=== PATIENT | male | born 1940 | race Caucasian/White ===

== ENCOUNTER → 2016-11-11 | Outpatient (CLI) | payer OTHER ==
[~2016-11-11] MED LIST: ASPI81TA28 PO; B-CO1CAP5 PO; CLOP1TAB5 PO; COEN150C PO; FINA5TAB PO; LISI-461 PO; MULTTAB58 PO; NTRGSL/4 UT; PITAVASTATIN CALCIUM PO; PRAV20TA PO
[2016-11-11 18:12] LABS: URINE APPEARANCE CLEAR (CLEAR); URINE BILIRUBIN NEG (NEG); URINE COLOR YELLOW; URINE NITRITE NEG (NEG); URINE PH 5.5 (4.5-7.5); UROBILINOGEN NEG (NEG)
[2016-11-11 18:13] LABS: MANUAL MICROSCOPIC REQUIRED? NO; REVIEW REQ? NO
[2016-11-11 18:15] LABS: HEMATOCRIT 39.2 % (42-52); MEAN CORPUSCULAR HEMOGLOBIN 33.8 pg (25-34); MEAN CORPUSCULAR HGB CONC 34.2 g/dl (32-36); MEAN PLATELET VOLUME 9.5 fL (7.4-10.4); PLATELET COUNT 220 K/uL (130-400); RED BLOOD COUNT 3.96 M/uL (4.7-6.1)
[2016-11-11 19:30] LABS: FERRITIN 45.2 ng/ml (8.0-388.0)
[2016-11-11 19:33] LABS: BLOOD UREA NITROGEN 20 mg/dl (7-18); BUN/CREATININE RATIO 15.5 (10-20); CARBON DIOXIDE 27 mmol/L (21-32); CHLORIDE 106 mmol/L (98-107); GLUCOSE 98 mg/dl (70-99); PHOSPHORUS 2.7 mg/dl (2.5-4.9); POTASSIUM 4.6 mmol/L (3.5-5.1); SODIUM 141 mmol/L (136-145)
== END | disposition home or self-care (01) ==
LOC: C.LABMFLN 14:12
PROVIDERS: ATTEND Internal Medicine Nephrology
DX: R33.9 Retention of urine, unspecified (principal); N20.0 Calculus of kidney; R31.0 Gross hematuria; E55.9 Vitamin D deficiency, unspecified

== ENCOUNTER → 2017-01-06 | Outpatient (CLI) | payer OTHER ==
[2017-01-06 13:16] LABS: URINE APPEARANCE CLEAR (CLEAR); URINE BILIRUBIN NEG (NEG); URINE COLOR DK YELLOW; URINE NITRITE NEG (NEG); URINE SPECIFIC GRAVITY 1.016 (1.000-1.030); UROBILINOGEN NEG (NEG)
[2017-01-06 13:19] LABS: MANUAL MICROSCOPIC REQUIRED? NO; REVIEW REQ? NO
[2017-01-06 13:58] LABS: BLOOD UREA NITROGEN 19 mg/dl (7-18); BUN/CREATININE RATIO 14.9 (10-20); CALCIUM 9.6 mg/dl (8.5-10.1); CARBON DIOXIDE 24 mmol/L (21-32); CHLORIDE 105 mmol/L (98-107); GLUCOSE 89 mg/dl (70-99); POTASSIUM 4.5 mmol/L (3.5-5.1); SODIUM 138 mmol/L (136-145)
== END | disposition home or self-care (01) ==
LOC: C.LABMFLN 12:03
PROVIDERS: ATTEND Internal Medicine Nephrology
DX: N20.0 Calculus of kidney (principal)

== ENCOUNTER → 2017-01-20 | Outpatient (CLI) | payer OTHER ==
[2017-01-20 13:33] LABS: URINE APPEARANCE CLEAR (CLEAR); URINE BILIRUBIN NEG (NEG); URINE COLOR DK YELLOW; URINE NITRITE NEG (NEG); URINE PH 6.5 (4.5-7.5); URINE SPECIFIC GRAVITY 1.019 (1.000-1.030); UROBILINOGEN NEG (NEG)
[2017-01-20 13:44] LABS: POTASSIUM 4.2 mmol/L (3.5-5.1)
[2017-01-20 13:58] LABS: MANUAL MICROSCOPIC REQUIRED? NO; REVIEW REQ? YES
--- NOTE | 2017-02-04 11:49 | CODING QUERY MEDICAL NECESSITY ---
CQSUPPORTING DIAGNOSIS NEEDED A supporting diagnosis is required for the test/procedure performed on this patient in order for us to be reimbursed by the patient's insurance. Please provide a supporting diagnosis for the following test/procedure listed below next to the test name along with your signature. *If there is no additional diagnosis for this patient that would support the following test/procedure please document that below next to the test/procedure. Test(s)/Procedure(s) that require a supporting diagnosis: DOS 01/20/17 VITAMIN D TEST Provider Signature: Date: Thank you Sweetie Ramires Health Information Management Once completed, please kindly fax back to [phone] For questions please call [phone]
== END | disposition home or self-care (01) ==
LOC: C.LABMFLN 12:21
PROVIDERS: ATTEND Internal Medicine Nephrology
DX: R31.0 Gross hematuria (principal); E55.9 Vitamin D deficiency, unspecified

== ENCOUNTER 2019-01-18 05:32 | Inpatient (IN) ==
--- NOTE | 2019-01-04 17:05 | PAT Medication Instructions ---
Medication Instructions Date of Service January 05, 2019 Home Medications Prevagen 1 tab PO QAM aspirin [Aspirin Low Dose] 81 mg PO BID calcium carbonate-vitamin D3 1 tab PO BID clopidogrel 75 mg PO QPM coenzyme Q10 [CoQ-10] 200 mg PO QPM famotidine 20 mg PO BID lisinopril 10 mg PO QAM multivitamin 1 tab PO QAM nitroglycerin [Nitrostat] 1 tab SUBLINGUAL DIRECTED peg 400-propylene glycol (PF) [Systane (PF)] 1 drp OPHTHALMIC (EYE) BID NEEDED pitavastatin calcium [Livalo] 2 mg PO QPM potassium citrate 10 meq PO BID pravastatin 20 mg PO QPM vitamin B complex 2 tab PO QAM Continue as directed nitroglycerin [Nitrostat] 1 tab SUBLINGUAL DIRECTED ASK your prescriber and surgeon aspirin [Aspirin Low Dose] 81 mg PO BID clopidogrel 75 mg PO QPM STOP taking 2 weeks before surgery Prevagen 1 tab PO QAM coenzyme Q10 [CoQ-10] 200 mg PO QPM DO NOT take the morning of surgery calcium carbonate-vitamin D3 1 tab PO BID multivitamin 1 tab PO QAM lisinopril 10 mg PO QAM potassium citrate 10 meq PO BID vitamin B complex 2 tab PO QAM Take morning of surgery With a small sip of water, OTHERWISE NOTHING TO EAT OR DRINK AFTER MIDNIGHT: famotidine 20 mg PO BID peg 400-propylene glycol (PF) [Systane (PF)] 1 drp OPHTHALMIC (EYE) BID NEEDED Take evening before surgery calcium carbonate-vitamin D3 1 tab PO BID famotidine 20 mg PO BID peg 400-propylene glycol (PF) [Systane (PF)] 1 drp OPHTHALMIC (EYE) BID NEEDED pitavastatin calcium [Livalo] 2 mg PO QPM potassium citrate 10 meq PO BID pravastatin 20 mg PO QPM Other Notes If you have any questions please call us at [phone] or [phone] or [phone] or [phone]
--- NOTE | 2019-01-05 10:02 | Anesthesiology Consultation ---
Date of Service January 05, 2019 Assessment & Plan (1) Encounter for pre-operative examination: Chart Review Chart Review: Acceptable Risk for Surgery and Patient seen in Pre Admission Testing Consults Requested none History Surgery Operation Date: 01/19/19 07:45 Proposed Procedures p C3-C5 Anterior Cervical Discectomy and Fusion, C4 Corpectomy - Tarik Biggs DO Height/Weight Height: 5 ft 5 in Weight: 84.5 kg Allergies Allergy/AdvReac Type Severity Reaction Status Date / Time propoxyphene Allergy Severe POSS. Verified 12/31/18 13:07 CARDIAC ARREST morphine Allergy Unknown "NEAR Verified 12/31/18 13:07 " - TOLERATES FENTANYL Medications Home Medications Medication Instructions Recorded Confirmed Last Taken Prevagen 1 tab PO QAM 12/31/18 Unknown aspirin [Aspirin Low Dose] 81 mg PO BID 12/31/18 12/31/18 Unknown calcium carbonate-vitamin D3 1 tab PO BID 12/31/18 12/31/18 Unknown [Calcium 500 With D] clopidogrel 75 mg PO QPM 12/31/18 12/31/18 Unknown coenzyme Q10 [CoQ-10] 200 mg PO QPM 12/31/18 12/31/18 Unknown famotidine 20 mg PO BID 12/31/18 12/31/18 Unknown lisinopril 10 mg PO QAM 12/31/18 12/31/18 Unknown multivitamin 1 tab PO QAM 12/31/18 12/31/18 Unknown nitroglycerin [Nitrostat] 1 tab SUBLINGUAL DIRECTED 12/31/18 12/31/18 Unknown peg 400-propylene glycol (PF) 1 drp OPHTHALMIC (EYE) BID PRN 12/31/18 12/31/18 Unknown [Systane (PF)] pitavastatin calcium [Livalo] 2 mg PO QPM 12/31/18 12/31/18 Unknown potassium citrate 10 meq PO BID 12/31/18 12/31/18 Unknown pravastatin 20 mg PO QPM 12/31/18 12/31/18 Unknown vitamin B complex 2 tab PO QAM 12/31/18 12/31/18 Unknown Past Medical History Medical History BPH (benign prostatic hyperplasia) GERD (gastroesophageal reflux disease) History of renal stone Hx 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 - Found on MRI Hx of myocardial infarction 2009 - seen at [place] - stress test/cardiac cath Hyperlipidemia Hypertension Hypothyroidism Late onset Alzheimer's disease without behavioral disturbance Obstructive sleep apnea on CPAP Pituitary tumor Monitored by PCP @ [facility] Past Family History Family History Grandmother (Paternal) Family history of diabetes mellitus Past Surgical History Surgical History History of prostate surgery had laser surgery 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 Elected for glidescope based on pt airway assessment, ease, and use by resident. Hx of cardiac cath 2009 = done at [place] - Has stent in LAD Hx of colonoscopy Hx of hernia repair x3 Past Anesthesia History No Hx of Anesthesia Complications and No Family Hx of Anesthesia Complications History of PONV No Motion Sickness Screening History of Motion Sickness: No Social History Smoking Status: Never smoker Do You Dip or Chew Tobacco: No Hx Alcohol Use: No Hx Substance Use: No Exercise / Class Metabolic Activity II 4-5 Yardwork/Stairs/Walk up hill (Able to climb FOS. Denies CP or SOB. Does get hip/back pain with stairs.) Review of Systems Patient denies chest pain, shortness of breath, dyspnea on exertion, cough, wheezing, palpitations. +Joint pain (back/neck) +acid reflux (controlled with medication) Physical Exam Vital Signs BP: 130/80 P: 59 R: 14 T: 97.8 SPO2: 98% on RA ENMT Thyromental Distance: < 3.5 Finger Breadths (3) Mallampati Class: III Neck normal visual inspection and trachea midline Respiratory normal respiratory effort Auscultation: lungs clear to auscultation bilaterally Cardiovascular Rate/Rhythm: regular rate and regular rhythm Heart Sounds: no murmur Vessels: no carotid bruit Neurologic moves all extremities Psychiatric Orientation: oriented to person Testing Electrocardiogram Date: 01/05/19 Findings: + NSR @ (61) and + no change from (01/09/16) Chest X-Ray Date: 01/05/19 Findings: + NAD FINDINGS: There is no pneumothorax or pleural effusion. Lung volumes are mildly diminished. Linear bibasilar opacities favor atelectasis. There is no consolidation or evidence for pulmonary edema. A moderate sized hiatal hernia is noted. Cardiomediastinal silhouette is otherwise unremarkable. IMPRESSION: 1. No acute cardiopulmonary findings. 2. Moderate-sized hiatal hernia. Laboratory Results 01/05/19 11:08 01/05/19 11:08 Blood Type O Positive 01/05/19 11:08 Antibody Screen NEGATIVE 01/05/19 11:08 PT 10.2 Seconds (9.0-12.0) 01/05/19 11:08 INR 1.0 (0.9-1.1) 01/05/19 11:08 APTT 25.2 Seconds (21.0-31.0) 01/05/19 11:08 Urine Color Yellow 01/05/19 Unknown Urine Appearance Clear (Clear) 01/05/19 Unknown Urine pH 6.5 (4.5-7.5) 01/05/19 Unknown Ur Specific [place] 1.014 (1.000-1.030) 01/05/19 Unknown Urine Protein Negative (Negative) 01/05/19 Unknown Urine Glucose (UA) Negative (Negative) 01/05/19 Unknown Urine Ketones Negative (Negative) 01/05/19 Unknown Urine Nitrite Negative (Negative) 01/05/19 Unknown Ur Leukocyte Esterase Negative (Negative) 01/05/19 Unknown
--- NOTE | 2019-01-05 11:51 | XRay Report ---
XR chest Pre-admission PA/Lat CLINICAL HISTORY: Preoperative evaluation. COMPARISON STUDY: Chest radiograph December 19, 2015. FINDINGS: There is no pneumothorax or pleural effusion. Lung volumes are mildly diminished. Linear bi basilar opacities favor atelectasis. There is no consolidation or evidence for pulmonary edema. A mod erate sized hiatal hernia is noted. Cardiomediastinal silhouette is otherwise unremarkable. IMPRESSION: 1. No acute cardiopulmonary findings. 2. Moderate-sized hiatal hernia. Electronically signed by: Moose Zapien M.D. 01/05/2019 11:50 AM
[2019-01-05 12:17] LABS: Basophils # (auto) 0.01 K/uL (0-0.2); Basophils % (auto) 0.2 %; Eosinophils # (auto) 0.15 K/uL (0-0.5); Eosinophils % (auto) 2.4 %; Hematocrit (blood only) 41.1 % (42-52); Hemoglobin 13.9 g/dL (14.0-18.0); Lymphocytes # (auto) 1.33 K/uL (1.2-3.4); Lymphocytes % (auto) 21.3 %; Mean Corpuscular Hgb Conc 33.8 g/dL (32-36); Mean Corpuscular Volume 98.6 fL (80-100); Mean Platelet Volume 9.7 fL (7.4-10.4); Monocytes # (auto) 0.61 K/uL (0.11-0.59); Monocytes % (auto) 9.8 %; Neutrophils # (auto) 4.15 K/uL (1.4-6.5); Neutrophils % (auto) 66.3 %; Platelet Count 202 K/uL (130-400); RDW Coefficient of Variation 12.5 % (11.5-14.5); RDW Standard Deviation 45.2 fL (36.4-46.3); Red Blood Count 4.17 M/uL (4.7-6.1); White Blood Count 6.25 K/uL (4.8-10.8)
[2019-01-05 12:18] LABS: Appearance Urine Clear (Clear); Bilirubin Urine Negative (Negative); Blood Urine Negative (Negative); Color Urine Yellow; Glucose Urine UA Negative (Negative); Ketones Urine Negative (Negative); Leukocyte Esterase Urine Negative (Negative); Nitrite Urine Negative (Negative); Protein Urine Negative (Negative); Specific Gravity Urine 1.014 (1.000-1.030); Urobilinogen Urine Negative (Negative); pH Urine 6.5 (4.5-7.5)
[2019-01-05 12:30] LABS: Partial Thromboplastin Ratio 0.9; Partial Thromboplastin Time 25.2 Seconds (21.0-31.0); Prothrombin Time 10.2 Seconds (9.0-12.0)
[2019-01-05 12:32] LABS: BUN Creatinine Ratio 14.1 (10-20); Calcium 10.1 mg/dl (8.5-10.1); Creatinine Clr Calc Pharmacy 43.3 ml/min; Est GFR (African American) 56.6; Est GFR (Non-African American) 48.8
[2019-01-18] MEDS ORDERED: CLINDAMYCIN 600 MG/54 ML BAG IV SCH (06:00)
[2019-01-18] MEDS ORDERED: LR 15ML/HR IV SCH (06:00)
[2019-01-18] MEDS ORDERED: CeleBREX 200 MG CAP PO SCH (06:00)
[2019-01-18] MEDS ORDERED: GABAPENTIN 300 MG PO SCH (06:00)
[2019-01-18] MEDS ORDERED: ACETAMINOPHEN 500 MG TAB PO SCH (06:00)
[2019-01-18] MEDS ORDERED: fentaNYL citrate 100 MCG/2 ML VIAL ONE ×3 (06:43→09:23)
[2019-01-18] MEDS ORDERED: BACITRACIN INJ 50,000 UNIT VIAL ONE (06:52)
--- NOTE | 2019-01-18 07:27 | History & Physical Bridge Note ---
Date of Service January 18, 2019 History & Physical Bridge Note I have examined the patient, reviewed the History & Physical and in the interval since the performance of the History & Physical I have noted the following changes of clinical significance: no changes noted
--- NOTE | 2019-01-18 07:28 | History & Physical Report ---
Date of Service January 18, 2019 Assessment & Plan (1) Cervical stenosis of spinal canal: Anterior cervical discectomy and fusion C3-C5 corpectomy C4 Present on Admission?: Yes History of Present Illness Chief Complaint: Neck and arm pain Primary Care Provider: Calos Radford MD This is an 78-year-old male that presents with chronic persistent neck and arm pain. After failing extensive course of nonoperative care he is here for surgical intervention. Allergies Allergy/AdvReac Type Severity Reaction Status Date / Time propoxyphene Allergy Severe POSS. Verified 01/18/19 05:58 CARDIAC ARREST doxycycline Allergy Unknown Unknown Verified 01/18/19 06:10 morphine Allergy Unknown "NEAR Verified 01/18/19 05:58 " - TOLERATES FENTANYL Penicillins Allergy Unknown Unknown Verified 01/18/19 06:10 Home Medications Home Medications Medication Instructions Recorded Confirmed Type Prevagen 1 tab PO QAM 12/31/18 01/18/19 History aspirin [Aspirin Low Dose] 81 mg PO BID 12/31/18 01/18/19 History calcium carbonate-vitamin D3 1 tab PO BID 12/31/18 01/18/19 History [Calcium 500 With D] clopidogrel 75 mg PO QPM 12/31/18 01/18/19 History coenzyme Q10 [CoQ-10] 200 mg PO QPM 12/31/18 12/31/18 History famotidine 20 mg PO BID 12/31/18 01/18/19 History lisinopril 10 mg PO QAM 12/31/18 01/18/19 History multivitamin 1 tab PO QAM 12/31/18 01/18/19 History nitroglycerin [Nitrostat] 1 tab SUBLINGUAL DIRECTED 12/31/18 01/18/19 History peg 400-propylene glycol (PF) 1 drp OPHTHALMIC (EYE) BID PRN 12/31/18 History [Systane (PF)] pitavastatin calcium [Livalo] 2 mg PO QPM 12/31/18 01/18/19 History potassium citrate 10 meq PO BID 12/31/18 01/18/19 History pravastatin 20 mg PO QPM 12/31/18 01/18/19 History vitamin B complex 2 tab PO QAM 12/31/18 01/18/19 History acetaminophen [Acetaminophen Extra 1,000 mg PO Q6H PRN 01/18/19 01/18/19 History Strength] Past Med/Surg History Family History Grandmother (Paternal) Family history of diabetes mellitus Social History Preferred Language: Chadian Communication Ability: Effective Beliefs That Will Affect Care: None Current Living Situation: Spouse Other Information That Helps Us Care for You: No Feels Safe at Home: Yes Safety Concerns: Feels Safe At This Time Smoking Status: Never smoker Hx Alcohol Use: No Hx Substance Use: No Physical Exam Vital Signs (Past 24 Hours): Last Vital Signs Temp 36.6 C 01/18/19 06:21 Pulse 68 01/18/19 06:21 Resp 20 01/18/19 06:21 BP 123/81 01/18/19 06:21 Pulse Ox 94 01/18/19 06:21
[2019-01-18] MEDS ORDERED: HYDROmorphone INJ 2 MG/ML SYR/VIAL ONE (08:01)
[2019-01-18] MEDS ORDERED: ONDANSETRON INJ 2 MG/ML 2 ML VIAL ONE (08:02)
[2019-01-18] MEDS ORDERED: ROCURONIUM BROMIDE 10 MG/ML 5 ML VIAL ONE (08:02)
[2019-01-18] MEDS ORDERED: ePHEDrine sulfate 50 MG/ML SYR ONE ×2 (08:02→08:59)
[2019-01-18] MEDS ORDERED: NEOSTIGMINE METHYLSULFATE 1 MG/ML 10ML VIAL ONE (08:02)
[2019-01-18] MEDS ORDERED: GLYCOPYRROLATE 0.2 MG/ML VIAL ONE (08:02)
[2019-01-18] MEDS ORDERED: DEXAMETHASONE SOD INJ 4 MG/ML VIAL ONE (08:02)
[2019-01-18] MEDS ORDERED: LIDOCAINE HCL 2% 2 ML VIAL/AMP(20MG/ML) INFIL ONE (08:02)
[2019-01-18] MEDS ORDERED: PROPOFOL IV EMULSION 10 MG/ML 20 ML VIAL IV ONE (08:02)
[2019-01-18] MEDS ORDERED: FLOSEAL HEMOSTATIC MATRIX 10ML TOP ONE (08:21)
[2019-01-18] MEDS ORDERED: THROMBIN FOR SOLN 20000 UNIT KIT ONE (08:28)
[2019-01-18] MEDS ORDERED: ePHEDrine sulfate 50 MG/ML AMP ONE (08:59)
--- NOTE | 2019-01-18 09:35 | Operative Report ---
Post Operative Report Pre & Post Diagnosis Operation Date: 01/18/19 07:45 Pre-Op Diagnosis: Cervical spinal stenosis with myeloradiculopathy Post-Op Diagnosis: Same Procedure Operation Date: 01/18/19 07:45 Actual Procedures #1 anterior cervical discectomy C3-4 and C4-5. #2 anterior cervical arthrodesis C3-4 C4-5. #3 placement of cortical allograft filled with DBM 6 mm in height at C3-4 C4-5. #4 application ibanez plate and screws across C3-4 C4-5. Surgeon Tarik Biggs, Business Development Director Velma Carvalho Estimated Blood Loss 200 Findings Consistent with Post-Op Diagnosis Specimens None Description of Procedure Patient was met with preoperatively case discussed all questions addressed. After informed consent obtained patient was taken to the operative suite underwent intubation and placed in supine position Marco table and Jenner headholder. All bony prominences well-padded eyes inspected to ensure no external pressure placed upon but this point the anterior cervical spine was prepped and draped in normal sterile fashion. The assistance of fluoroscopy identified the C4 vertebral body and a transverse incision was placed along the right anterior aspect of the cervical spine aligns region. Sharp dissection with the assistance of bipolar cautery was performed down to and exposing the anterior cervical spine from C3-C5. Self-retaining retractors placed. Then performed a complete discectomy of C3-4 out to the uncovertebral joints bilaterally removing all posterior annular fibers and longitudinal ligament for 3 decompression. A 6 mm cortical allograft filled with DBM was then tapped in position. And then approached C4-5. Upon my elevation of the longus coli I experienced significant arterial bleeding on the right side. I will was as unable to identify a precise vessel. Packed the area off with Surgicel. Bleeding seemed to be controlled at this time. I did request i an intraoperative consult with Dr. Banda her vascular surgeon regarding his thoughts. It is recommended we perform a CTA immediately postoperatively. I did proceed to stabilize the C4-5 level so as not to disrupt the clot. I did perform a complete discectomy 4 5 and placed a 6 mm cortical allograft filled with DBM at this level. Ibanez plate and screws was then applied from C3-C5. All bleeding seemed to be controlled. A 15 round EMMA drain inserted. The incision was then closed with 2 Vicryl in a fashion of 4 Monocryl for Fransen closure. Patient was awakened and taken to PACU in stable condition. I attest to the content of the Intraoperative Record and any orders documented therein. Any exceptions are noted below.
[2019-01-18] MEDS ORDERED: ESMOLOL HCL INJ 10 MG/ML 10ML VIAL IV ONE (09:41)
[2019-01-18] MEDS ORDERED: LABETALOL HCL IV 5 MG/ML 20ML IV ONE (09:41)
[2019-01-18] MEDS ORDERED: PHENYLEPHRINE 100MCG/ML 5ML SYR ONE (09:41)
[2019-01-18] MEDS ORDERED: HydrALAZINE HCL 20 MG/ML VIAL ONE (09:50)
[2019-01-18] MEDS ORDERED: OPTIRAY 320 125ml IV PRN (10:22)
--- NOTE | 2019-01-18 10:54 | CT Scan Report ---
NECK CTA HISTORY: Neck pain. Possible Surgical Complication TECHNIQUE: Multiaxial CT images of the neck were performed both before and after the intravenous admi nistration of contrast to evaluate the major cervical vessels. Maximum intensity projection images we re also obtained. All measurements were calculated based on NASCET criteria. A dose lowering techniq ue was utilized adhering to the principles of ALARA. COMPARISON STUDY: None. FINDINGS: The aortic arch and proximal great vessels are widely patent. There is high-grade multifoc al stenosis within the distal left vertebral artery and also a focal area of high-grade stenosis with in the distal right vertebral artery. The bilateral common carotid arteries are widely patent. Modera te right and mild left calcified plaque within the carotid bulbs. This results in 60% focal stenosis within the proximal right internal carotid artery and 30% focal stenosis within the proximal left int ernal carotid artery. Partial opacification of the right maxillary sinus and moderate mucosal thicken ing within the left maxillary sinus. The visualized brain parenchyma is unremarkable. The surgical dr torito seen within the right lateral neck with the tip terminating medial to the right common carotid ar niharika. No significant fluid collections or hematoma identified. There is soft tissue gas at the operat calderon bed within the right side of the neck and prevertebral location consistent with postoperative mohit nge. No prevertebral fluid collections identified. No pneumothorax. Small amount of mucoid material w ithin the proximal trachea. Focal occlusion of the proximal right vertebral artery at the C5 and C6 l evels. There is reconstitution of flow within the vertebral artery due to collaterals at the C4 level . The patient is status post C3-C5 anterior cervical discectomy and fusion. The hardware appears inta ct. Moderate central canal narrowing at these levels. Of note, evaluation the central canal is subopt imal due to the CT technique. IMPRESSION: 1. 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 The acuity of this occlusion is indeterminate but could be due to a focal dissection. 2. Approximately 60% stenosis within the proximal right internal carotid artery and 30% stenosis of t he proximal left internal carotid artery. 3. Postsurgical changes consistent with a C3-C5 ACDF. The hardware appears intact. There is a surgica l drain within the right side the neck with associated soft tissue gas within the right neck and prev ertebral location. This likely represents expected postoperative change. No fluid collections to sugg est an abscess or hematoma. 4. Small amount of mucoid material within the trachea. Otherwise, the airway is patent. Electronically signed by: Coy Coello M.D. 01/18/2019 10:53 AM
--- NOTE | 2019-01-18 12:37 | Anesthesiology Progress Note ---
Date of Service January 18, 2019 Anesthesia Post Procedure Vital Signs Vital Signs: Temp Pulse Pulse Pulse Resp BP BP 01/18/19 12:30 66 14 01/18/19 12:26 68 13 01/18/19 12:04 74 14 01/18/19 12:01 65 13 116/61 01/18/19 11:30 64 16 112/61 01/18/19 11:15 97.5 F L 63 16 117/73 01/18/19 11:00 61 16 118/65 01/18/19 10:45 62 16 117/71 01/18/19 10:35 65 16 111/71 01/18/19 10:25 67 16 121/68 01/18/19 10:15 63 16 120/72 01/18/19 10:05 61 16 135/85 01/18/19 09:55 56 L 16 131/78 01/18/19 09:46 96.8 F L 58 L 14 138/78 01/18/19 06:21 97.9 F 68 20 123/81 Pulse Ox 01/18/19 12:30 95 01/18/19 12:26 93 01/18/19 12:04 94 01/18/19 12:01 94 01/18/19 11:30 95 01/18/19 11:15 96 01/18/19 11:00 95 01/18/19 10:45 96 01/18/19 10:35 96 01/18/19 10:25 98 01/18/19 10:15 97 01/18/19 10:05 99 01/18/19 09:55 99 01/18/19 09:46 96 01/18/19 06:21 94 Notes Mental Status: alert / awake / arousable and participated in evaluation Patient Amnestic to Procedure: Yes Nausea / Vomiting: adequately controlled Pain: adequately controlled Airway Patency, RR, SpO2: stable & adequate BP & HR: stable & adequate Hydration State: stable & adequate Anesthetic Complications: no major complications apparent and Pt Satisfied with anesthetic care
--- NOTE | 2019-01-18 12:42 | Fluoroscopy Report ---
Cervical SPINE, INTRAOPERATIVE FLUOROSCOPY HISTORY: C3-C5 ACDF. FLUOROSCOPY TIME: 8. FINDINGS: Intraoperative fluoroscopy was provided for the cervical spine. 2 fluoroscopic spot images were obtained. Anterior cervical discectomy and fusion from C3 through C5. The hardware appears intac t. IMPRESSION: Fluoroscopy provided for a C3-C5 ACDF. Electronically signed by: Coy Coello M.D. 01/18/2019 12:40 PM
[2019-01-18] MEDS ORDERED: DO NOT ADMINISTER PNEUMOCOCCAL VACCINE PRN (13:00)
[2019-01-18] MEDS ORDERED: NITROGLYCERIN SL 0.4 MG/TAB TAB SL PRN (13:00)
[2019-01-18] MEDS ORDERED: OXYCODONE HCL IR 5 MG TAB (IMMEDIATE RELEASE) PO PRN (13:00)
[2019-01-18] MEDS ORDERED: NALOXONE HCL 0.4 MG/1 ML VIAL/CARP IV PRN (13:00)
[2019-01-18] MEDS ORDERED: HYDROmorphone INJ 0.5 MG/0.5 ML SYR IV PRN (13:00)
[2019-01-18] MEDS ORDERED: DiphenhydrAMINE HCL 50 MG/ML VIAL IV PRN (13:00)
[2019-01-18] MEDS ORDERED: DEXAMETHASONE SOD PHOSPHATE 8 MG in SYRINGE 0 ML IV PRN (13:00)
[2019-01-18] MEDS ORDERED: ONDANSETRON INJ 2 MG/ML 2 ML VIAL IV PRN (13:00)
[2019-01-18] MEDS ORDERED: ACETAMINOPHEN 500 MG TAB PO PRN (13:00)
[2019-01-18] MEDS ORDERED: LORazepam 0.5 MG TAB PO PRN (13:00)
[2019-01-18] MEDS ORDERED: LORazepam 0.5 MG/1 ML VIAL IV PRN (13:00)
[2019-01-18] MEDS ORDERED: RACEPINEPHRINE 2.25% NEBU SOLN 0.5 ML VIAL INH PRN (13:00)
[2019-01-18] MEDS ORDERED: DO NOT ADMINISTER FLU VACCINE PRN (13:00)
[2019-01-18] MEDS ORDERED: MAGNESIUM HYDROXIDE SUSP 30 ML UDC PO PRN (13:00)
[2019-01-18] MEDS: SODIUM CHLORIDE 0.9% 1000ML 1,000 ML IV SCH (13:24)
[2019-01-18] MEDS ORDERED: LISINOPRIL 10 MG TAB PO STA (13:36)
[2019-01-18] MEDS: CLINDAMYCIN 600 MG in DEXTROSE 5% 50 ML IV SCH ×2 (14:11→20:59)
[2019-01-18] MEDS: SCOPOLAMINE 1.5 MG TDSY TD SCH (14:12)
--- NOTE | 2019-01-18 14:17 | Critical Care Consultation ---
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 Patient with aberrant vertebral artery that during surgery was noted to not be within foramen transversarium. Neuro: - history of Alzheimer's dementia. 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 Cerebellar testing unreliable with finger to nose as noted spouse states prior baseline deficits with coordination. No appreciable nystagmus. No complaints of nausea or vomiting to suggest cerebellar ischemia. Cardiac/Vascular: - Past Medical Hx of CAD, [place] in [place] with stent to LAD, HTN, HLD. 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 - current medications include ASA 81mg BID for anti-platelet to prevent futher aggregation or occlusion at occlusion site. - Lisinopril 10mg PO qAM, anti-hypertensive, home dose - Pravastatin 20mg PO qPM for management of HLD, CAD. - Pulse has been WNL with rates 60s-70s. - Hemodynamically stable with BPs 110s/50s-60s, will monitor for hypotension. - Continuous patient education provided to ensure patient does not cough, clear throat, adhering to voice rest. - Scopolamine patch and Zofran 4mg IV q6H PRN provided for anti-emetic to prevent nausea leading to vomiting which could cause complication from surgery. - Requires anti-HTN monitoring for routine post-op care following ACDF with goals of systolic less than 160 Pulmonary: - Monitoring for signs of potential swelling status post op, no stridor on auscultation and will continue to monitor. - supplemental oxygen with O2 stat maintain at >92% GI: - Famotidine 20mg BID and Scopolamine patch provided for anti-emetic effect; Zofran 4mg IV q6H PRN also available for anti-emesis. - Diet: NPO upon coming to floor, after discussion with surgeon agree to start liquid diet. Renal/electrolytes: - NSS @80ml/hr : no current reyes cath Endo: ICU hyperglycemic protocol - no history of DM - history of subclinical hypothyroidism, not requiring synthroid treatment Heme: - will follow CBC for blood loss anemia ID: - afebrile, no signs of infectious process - On Clindamycin 600mg q8h x3 bags for surgical prophylaxis. Lines: Peripheral lines intact surgical drain to anterior neck intact DVT: SCDs Resuscitation status: Full Code Supervising Physician Co-Signing Physician Notes Dr. Martin was resident physician during care of patient. I separately evaluated patient for concepcion portions of the history and the exam. I was present during the critical portion of medical decision making, and I discussed the case with the resident. I generally agree with the findings and plan. Discussed the patient with Dr. Biggs, seen by Dr. Banda for aberrant vertebral artery vessel injury. Patient at baseline cannot place screw in a hole, difficult exam to evaluate for ataxia. Pupils equal round reactive to light extraocular muscles intact no nystagmus. History of Present Illness Reason for Consultation: Continued post-op care of patient with occlusion of right proximal vertebral artery status post anterior cervical discectomy C3-4 and C4-5; anterior cervical arthrodesis C3-4 C4-5; placement of cortical allograft filled with DBM 6 mm in height at C3-4 C4-5; application haddad plate and screws across C3-4 C4-5. ICU to monitor for potential post-op complications of CVA related to occluded right vertebral artery. Attending Physician: Tarik Biggs, Allergies Allergy/AdvReac Type Severity Reaction Status Date / Time propoxyphene Allergy Severe POSS. Verified 01/18/19 05:58 CARDIAC ARREST doxycycline Allergy Unknown Unknown Verified 01/18/19 06:10 morphine Allergy Unknown "NEAR Verified 01/18/19 05:58 " - TOLERATES FENTANYL Penicillins Allergy Unknown Unknown Verified 01/18/19 06:10 Home Medications Home Medications Medication Instructions Recorded Confirmed Type Prevagen 1 tab PO QAM 12/31/18 01/18/19 History aspirin [Aspirin Low Dose] 81 mg PO BID 12/31/18 01/18/19 History calcium carbonate-vitamin D3 1 tab PO BID 12/31/18 01/18/19 History [Calcium 500 With D] clopidogrel 75 mg PO QPM 12/31/18 01/18/19 History coenzyme Q10 [CoQ-10] 200 mg PO QPM 12/31/18 12/31/18 History famotidine 20 mg PO BID 12/31/18 01/18/19 History lisinopril 10 mg PO QAM 12/31/18 01/18/19 History multivitamin 1 tab PO QAM 12/31/18 01/18/19 History nitroglycerin [Nitrostat] 1 tab SUBLINGUAL DIRECTED 12/31/18 01/18/19 History peg 400-propylene glycol (PF) 1 drp OPHTHALMIC (EYE) BID PRN 12/31/18 History [Systane (PF)] pitavastatin calcium [Livalo] 2 mg PO QPM 12/31/18 01/18/19 History potassium citrate 10 meq PO BID 12/31/18 01/18/19 History pravastatin 20 mg PO QPM 12/31/18 01/18/19 History vitamin B complex 2 tab PO QAM 12/31/18 01/18/19 History acetaminophen [Acetaminophen Extra 1,000 mg PO Q6H PRN 01/18/19 01/18/19 History Strength] Patient History Medical History BPH (benign prostatic hyperplasia) GERD (gastroesophageal reflux disease) History of renal stone Hx 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 - Found on MRI Hx of myocardial infarction 2009 - seen at [address] - stress test/cardiac cath Hyperlipidemia Hypertension Pituitary tumor Monitored by PCP @ [facility] Hypothyroidism Late onset Alzheimer's disease without behavioral disturbance Obstructive sleep apnea on CPAP Surgical History History of prostate surgery had laser surgery 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 Elected for glidescope based on pt airway assessment, ease, and use by resident. Hx of cardiac cath 2009 = done at [facility] [address] - Has stent in LAD Hx of colonoscopy Hx of hernia repair x3 Family History Grandmother (Paternal) Family history of diabetes mellitus Social History Preferred Language: Slovenian Communication Ability: Effective Beliefs That Will Affect Care: None Current Living Situation: Spouse Other Information That Helps Us Care for You: No Feels Safe at Home: Yes Safety Concerns: Feels Safe At This Time Smoking Status: Never smoker Hx Alcohol Use: No Hx Substance Use: No Review of Systems Respiratory: no dyspnea Cardiovascular: no chest pain Physical Exam Vital Signs (Past 24 Hours): Last Vital Signs Temp 36.4 C L 01/18/19 11:15 Pulse 68 01/18/19 13:46 Resp 13 01/18/19 13:46 BP 105/57 L 01/18/19 13:46 Pulse Ox 96 01/18/19 13:46 Constitutional: cooperative Eyes: + anicteric sclerae and EOM intact bilaterally Neck: anterior bandage with surgical drain in place; no stridor auscultation over bilateral anterior neck; mild swelling to anterior neck, trachea appears midline; cervical hard collar in place and removed for examination then replaced. Respiratory: normal respiratory effort, lungs clear to auscultation Cardiovascular: Rate/Rhythm: regular rate and regular rhythm Gastrointestinal (Abdomen): Inspection/Auscultation: normal bowel sounds Percussion/Palpation: abdomen nontender Musculoskeletal: Extremities: extremities normal to inspection Neurologic: moves all extremities and awake Caveat: Exam limited by history of previous CVA. Spouse notes that prior to procedure patient was unable to "put a screw in a hole." no deficits with EOM movements, etl programmer appear intact. Cerebellar testing unreliable with finger to nose as noted spouse states prior baseline deficits with coordination. No appreciable nystagmus. No complaints of nausea or vomiting to suggest cerebellar ischemia. Psychiatric: answers questions appropriately, obeys commands Results & Data Medications Administered Clindamycin Phosphate 600 mg/ (Dextrose) 54 mls @ 100 mls/hr IV Q8H SIMBA Stop: 01/19/19 06:33 Last Admin: 01/18/19 14:11 Dose: 100 mls/hr Documented by: [id number] Sodium Chloride (Nss 1000ml) 1,000 mls @ 80 mls/hr IV .[id number] [facility] Stop: 02/17/19 13:29 Last Admin: 01/18/19 13:24 Dose: 80 mls/hr Documented by: [id number] Scopolamine (Transderm-Scop) 1.5 mg TD Q72H [facility] Stop: 02/17/19 13:59 Last Admin: 01/18/19 14:12 Dose: 1.5 mg Documented by: [id number]
[2019-01-18] MEDS: CHECK SCOPOLAMINE PATCH PLACEMENT SCH ×2 (16:31→23:39)
--- NOTE | 2019-01-18 20:48 | Consultation ---
Date of Consultation January 18, 2019 Assessment & Plan (1) Injury of right vertebral artery: CTA was recommended after the surgery was completed. The CTA did reveal occlusion of the right vertebral artery at the level of the surgical procedure with reconstitution distally. Reconstitution appears to be in a retrograde fashion. No active bleeding was seen. No hematoma in the surgical site was appreciated. There is a drain in place in the right side of the neck. At this point we plan on no intervention. Patient should not become hypertensive postoperatively. Recommend that he keep the neck brace on at least 48 hours for vascular standpoint. We also recommend to repeat the CT scan in 24-48 hours. If the significant hematoma seen or if he develops significant bleeding postoperatively then arteriography may be needed with possible embolization of the right vertebral artery. Thank you very much for letting us participate in the care of this patient. History of Present Illness Reason for Consultation: Intraoperative bleeding. Attending Physician: Tarik Biggs DO History of Present Illness This is an 78-year-old white male who was undergoing cervical neck surgery with anterior approach. Upon removing the muscle from the vertebral bodies significant bleeding was noted. Vascular was consulted to aid in the control of bleeding. Allergies Allergy/AdvReac Type Severity Reaction Status Date / Time propoxyphene Allergy Severe POSS. Verified 01/18/19 05:58 CARDIAC ARREST doxycycline Allergy Unknown Unknown Verified 01/18/19 06:10 morphine Allergy Unknown "NEAR Verified 01/18/19 05:58 " - TOLERATES FENTANYL Penicillins Allergy Unknown Unknown Verified 01/18/19 06:10 Home Medications Home Medications Medication Instructions Recorded Confirmed Type Prevagen 1 tab PO QAM 12/31/18 01/18/19 History aspirin [Aspirin Low Dose] 81 mg PO BID 12/31/18 01/18/19 History calcium carbonate-vitamin D3 1 tab PO BID 12/31/18 01/18/19 History [Calcium 500 With D] clopidogrel 75 mg PO QPM 12/31/18 01/18/19 History coenzyme Q10 [CoQ-10] 200 mg PO QPM 12/31/18 12/31/18 History famotidine 20 mg PO BID 12/31/18 01/18/19 History lisinopril 10 mg PO QAM 12/31/18 01/18/19 History multivitamin 1 tab PO QAM 12/31/18 01/18/19 History nitroglycerin [Nitrostat] 1 tab SUBLINGUAL DIRECTED 12/31/18 01/18/19 History peg 400-propylene glycol (PF) 1 drp OPHTHALMIC (EYE) BID PRN 12/31/18 History [Systane (PF)] pitavastatin calcium [Livalo] 2 mg PO QPM 12/31/18 01/18/19 History potassium citrate 10 meq PO BID 12/31/18 01/18/19 History pravastatin 20 mg PO QPM 12/31/18 01/18/19 History vitamin B complex 2 tab PO QAM 12/31/18 01/18/19 History acetaminophen [Acetaminophen Extra 1,000 mg PO Q6H PRN 01/18/19 01/18/19 History Strength] Patient History Medical History BPH (benign prostatic hyperplasia) GERD (gastroesophageal reflux disease) History of renal stone Hx 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 - Found on MRI Hx of myocardial infarction 2009 - seen at [place] - stress test/cardiac cath Hyperlipidemia Hypertension Pituitary tumor Monitored by PCP @ [facility] Hypothyroidism Late onset Alzheimer's disease without behavioral disturbance Obstructive sleep apnea on CPAP Surgical History History of prostate surgery had laser surgery 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 Elected for glidescope based on pt airway assessment, ease, and use by resident. Hx of cardiac cath 2009 = done at [place] - Has stent in LAD Hx of colonoscopy Hx of hernia repair x3 Family History Grandmother (Paternal) Family history of diabetes mellitus Social History Preferred Language: Wallisian Communication Ability: Effective Beliefs That Will Affect Care: None Current Living Situation: Spouse Other Information That Helps Us Care for You: No Feels Safe at Home: Yes Safety Concerns: Feels Safe At This Time Smoking Status: Never smoker Hx Alcohol Use: No Hx Substance Use: No Review of Systems Unobtainable Physical Exam Vital Signs (Past 24 Hours): Last Vital Signs Temp 36.4 C L 01/18/19 16:00 Pulse 72 01/18/19 19:59 Resp 16 01/18/19 19:59 BP 111/71 01/18/19 17:45 Pulse Ox 94 01/18/19 19:59 The patient was under general anesthesia in supine. There is a anterior neck incision in place. The depths of the wounds are inspected. There was Surgicel in place. At that point no active bleeding was seen. There was a concern that this may have been an injury to the vertebral artery at the C 3 C4-C5 level. At this point in the bleeding was controlled recommend we can complete the planned operation.
[2019-01-18] MEDS: DOCUSATE SODIUM 100 MG CAP PO SCH (20:57)
[2019-01-18] MEDS: FAMOTIDINE 20 MG TAB PO SCH (20:57)
[2019-01-18] MEDS: ASPIRIN 81 MG ECTAB PO SCH (20:57)
[2019-01-18] MEDS: POTASSIUM CITRATE 10 MEQ TAB PO SCH (20:58)
[2019-01-18] MEDS: PRAVASTATIN SOD 20 MG TAB PO SCH (20:58)
[2019-01-18] MEDS ORDERED: NON-FORMULARY MEDICATION (Coenzyme Q10 [Coq-10] 200 MG) PO SCH (21:00)
[2019-01-18] MEDS ORDERED: PITAVASTATIN CALCIUM 2 MG PO SCH (21:00)
[2019-01-18] MEDS: CALCIUM 600MG + VIT D 400 IU TAB PO SCH (21:01)
[2019-01-19] MEDS: SODIUM CHLORIDE 0.9% 1000ML 1,000 ML IV SCH ×2 (03:04→15:19)
[2019-01-19] MEDS: CLINDAMYCIN 600 MG in DEXTROSE 5% 50 ML IV SCH (05:18)
[2019-01-19 05:29] LABS: Hematocrit (blood only) 35.1 % (42-52); Hemoglobin 11.9 g/dL (14.0-18.0); Immature Granulocytes # (auto) 0.03 K/uL (0.00-0.02); Immature Granulocytes % (auto) 0.2 %; Lymphocytes # (auto) 0.58 K/uL (1.2-3.4); Lymphocytes % (auto) 4.3 %; Mean Corpuscular Hgb Conc 33.9 g/dL (32-36); Mean Corpuscular Volume 99.4 fL (80-100); Mean Platelet Volume 9.6 fL (7.4-10.4); Monocytes # (auto) 1.27 K/uL (0.11-0.59); Monocytes % (auto) 9.5 %; Neutrophils # (auto) 11.52 K/uL (1.4-6.5); Platelet Count 175 K/uL (130-400); RDW Coefficient of Variation 12.7 % (11.5-14.5); RDW Standard Deviation 46.1 fL (36.4-46.3); Red Blood Count 3.53 M/uL (4.7-6.1)
[2019-01-19 05:51] LABS: BUN Creatinine Ratio 17.7 (10-20); Calcium 8.5 mg/dl (8.5-10.1); Creatinine Clr Calc Pharmacy 47.9 ml/min; Est GFR (African American) 63.2; Est GFR (Non-African American) 54.6; Potassium 4.7 mmol/L (3.5-5.1)
--- NOTE | 2019-01-19 06:38 | Critical Care Progress Note ---
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 Patient with aberrant vertebral artery that during surgery was noted to not be within foramen transversarium. Neuro: - history of Alzheimer's dementia. - neuro/vascular checks for post-op cervical neck surgery to assess for CVA, no acute events or deficits noted overnight. 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 Cerebellar testing with rapid alternating movements with thumb to pointer finger without deficit or asymmetry. Did not perform finger to nose as noted spouse states prior baseline deficits with coordination and is unreliable. No appreciable nystagmus. No complaints of nausea or vomiting to suggest cerebellar ischemia. 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 Cardiac/Vascular: - Past Medical Hx of CAD, [place] in 2009 with stent to LAD, HTN, HLD. 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 - current medications include ASA 81mg BID for anti-platelet to prevent futher aggregation or occlusion at occlusion site. - Lisinopril 10mg PO qAM, anti-hypertensive, home dose - Pravastatin 20mg PO qPM for management of HLD, CAD. - Pulse has been WNL with rates ranging 64-85. - Hemodynamically stable with BPs mostly 100s-110s/50s-60s, will monitor for hypotension there were some decreased numbers of 94/52 8am and 93/46 9am, but then rebounded to 120/64 at 10am. - Continuous patient education provided to ensure patient does not cough, clear throat, adhering to voice rest. - Scopolamine patch and Zofran 4mg IV q6H PRN provided for anti-emetic to prevent nausea leading to vomiting which could cause complication from surgery. - Requires anti-HTN monitoring for routine post-op care following ACDF with goals of systolic less than 160 - EMMA drain to remain for another 24 hours per review of ortho progress note. - Vascular with recommendation for repeat CT neck to reassess occlusion 24-48 s/p procedure; neck brace recommendation to keep on for 48 hours per vascular progress note. Pulmonary: - Monitoring for signs of potential swelling status post op, no stridor on auscultation and will continue to monitor. - supplemental oxygen with O2 stat maintain at >92% GI: - Famotidine 20mg BID and Scopolamine patch provided for anti-emetic effect; Zofran 4mg IV q6H PRN also available for anti-emesis. - Diet: NPO upon coming to floor, after discussion with surgeon agree to start liquid diet. Renal/electrolytes: - NSS @80ml/hr : no current reyes cath Endo: ICU hyperglycemic protocol - no history of DM - history of subclinical hypothyroidism, not requiring synthroid treatment Heme: - will follow CBC for blood loss anemia - EMMA drain to remain for another 24 hours per review of ortho progress note. ID: - afebrile, no signs of infectious process - On Clindamycin 600mg q8h x3 bags for surgical prophylaxis. Lines: Peripheral lines intact EMMA surgical drain to anterior neck intact DVT: SCDs Resuscitation status: Full Code Supervising Physician Co-Signing Physician Notes Dr. Martin was resident physician during care of patient. I separately evaluated patient for concepcion portions of the history and the exam. I was present during the critical portion of medical decision making, and I discussed the case with the resident. I generally agree with the findings and plan. Patient was discussed in multidisciplinary rounds. No significant overnight events, patient remains at baseline. Reviewed CTA of neck, plan discontinue EMMA drain tomorrow. Continued ICU observation. Subjective Caveat: History Limited by Dementia. Demetrio notes only complaint of pain is being uncomfortable from urinary cath placement. He does not complain of headache, neck pain, difficulty with swallowing, hoarseness or change in speech, shortness of breath, chest pain, nausea, fever, chills, arm or hand weakness or numbness. Physical Exam Vital Signs (Past 24 Hours): Last Vital Signs Temp 36.6 C 01/19/19 04:00 Pulse 68 01/19/19 06:00 Resp 16 01/19/19 06:00 BP 100/49 L 01/19/19 06:00 Pulse Ox 95 01/19/19 06:00 Constitutional: cooperative Eyes: + anicteric sclerae and EOM intact bilaterally ENMT: tolerating secretions appropriately Neck: Hard cervical collar in place, bandage in place with small amount of visible dry blood and with EMMA drain in place as well, no signs of significant anterior neck swelling, no dysphonia or hoarseness noted. Respiratory: normal respiratory effort, lungs clear to auscultation Cardiovascular: Rate/Rhythm: regular rate and regular rhythm Gastrointestinal (Abdomen): Inspection/Auscultation: normal bowel sounds Percussion/Palpation: abdomen nontender Musculoskeletal: Extremities: extremities normal to inspection Neurologic: moves all extremities and awake; no focal motor deficits Speech / Cognition: normal speech, no expressive aphasia and no receptive aphasia Cranial Nerves: EOM intact bilaterally, normal facial strength, tongue midline, able to elevate shoulders bilaterally and symmetric palate elevation Coordination: normal rapid alternating movements Psychiatric: Orientation: alert and oriented to person Apperance: appeared stated age Eye Contact: good eye contact Genitourinary: Reyes cath in place, returning light yellow urine. Results & Data Laboratory Results Laboratory Results - last 24 hr 01/18/19 01/18/19 01/18/19 12:00 18:46 23:01 WBC RBC Hgb Hct MCV MCH MCHC RDW Std Deviation RDW Coeff of Daniel Plt Count MPV Immature Gran % (Auto) Neut % (Auto) Lymph % (Auto) Hendry % (Auto) Eos % (Auto) Baso % (Auto) Immature Gran # (Auto) Neut # (Auto) Lymph # (Auto) Hendry # (Auto) Eos # (Auto) Baso # (Auto) Sodium Potassium Chloride Carbon Dioxide Anion Gap BUN Creatinine Est Cr Clr Drug Dosing Est GFR ( Amer) Est GFR (Non-Af Amer) BUN/Creatinine Ratio Glucose POC Glucose 166 H 158 H Calcium Nasal Screen MRSA (PCR) Negative 01/19/19 01/19/19 01/19/19 05:16 05:16 11:11 WBC 13.40 H RBC 3.53 L Hgb 11.9 L Hct 35.1 L MCV 99.4 MCH 33.7 MCHC 33.9 RDW Std Deviation 46.1 RDW Coeff of Daniel 12.7 Plt Count 175 MPV 9.6 Immature Gran % (Auto) 0.2 Neut % (Auto) 86.0 Lymph % (Auto) 4.3 Hendry % (Auto) 9.5 Eos % (Auto) 0.0 Baso % (Auto) 0.0 Immature Gran # (Auto) 0.03 H Neut # (Auto) 11.52 H Lymph # (Auto) 0.58 L Hendry # (Auto) 1.27 H Eos # (Auto) 0.00 Baso # (Auto) 0.00 Sodium 137 Potassium 4.7 Chloride 107 Carbon Dioxide 24 Anion Gap 6.0 BUN 22 H Creatinine 1.24 Est Cr Clr Drug Dosing 47.9 Est GFR ( Amer) 63.2 Est GFR (Non-Af Amer) 54.6 BUN/Creatinine Ratio 17.7 Glucose 119 H POC Glucose 108 H Calcium 8.5 Nasal Screen MRSA (PCR) Medications Administered Aspirin (Ecotrin Ectab) 81 mg PO BID [facility] Stop: 02/17/19 20:59 Last Admin: 01/19/19 10:05 Dose: 81 mg Documented by: [id number] Admin: 01/18/19 20:57 Dose: 81 mg Documented by: [id number] Docusate Sodium (Colace) 100 mg PO BID [facility] Stop: 02/17/19 20:59 Last Admin: 01/19/19 10:05 Dose: 100 mg Documented by: [id number] Admin: 01/18/19 20:57 Dose: 100 mg Documented by: [id number] Famotidine (Pepcid) 20 mg PO BID [facility] Stop: 02/17/19 20:59 Last Admin: 01/19/19 10:05 Dose: 20 mg Documented by: [id number] Admin: 01/18/19 20:57 Dose: 20 mg Documented by: [id number] Sodium Chloride (Nss 1000ml) 1,000 mls @ 80 mls/hr IV .[id number] [facility] Stop: 02/17/19 13:29 Last Admin: 01/19/19 03:04 Dose: 80 mls/hr Documented by: [id number] Infusion: 01/19/19 01:54 Dose: 80 mls/hr Documented by: [id number] Admin: 01/18/19 13:24 Dose: 80 mls/hr Documented by: [id number] Lisinopril (Zestril) 10 mg PO QAM [facility] Stop: 02/18/19 08:59 Last Admin: 01/19/19 10:05 Dose: 10 mg Documented by: [id number] Miscellaneous (Check Scopolamine Patch Placement) 1 ea N/A QS [facility] Stop: 02/17/19 15:59 Last Admin: 01/19/19 10:05 Dose: 1 ea Documented by: [id number] Admin: 01/18/19 23:39 Dose: 1 ea Documented by: [id number] Admin: 01/18/19 16:31 Dose: 1 ea Documented by: [id number] Multivitamins (Multivitamin Tab) 1 tab PO QAM [facility] Stop: 02/18/19 08:59 Last Admin: 01/19/19 10:04 Dose: 1 tab Documented by: [id number] Multivitamins/Minerals (Caltrate Plus) 1 tab PO BID [facility] Stop: 02/17/19 20:59 Last Admin: 01/19/19 10:42 Dose: Not Given Documented by: [id number] Admin: 01/18/19 21:01 Dose: 1 tab Documented by: [id number] Potassium Citrate (Urocit-K) 10 meq PO BID [facility] Stop: 02/17/19 20:59 Last Admin: 01/19/19 10:04 Dose: 10 meq Documented by: [id number] Admin: 01/18/19 20:58 Dose: 10 meq Documented by: [id number] Pravastatin Sodium (Pravachol) 20 mg PO QPM [facility] Stop: 02/17/19 20:59 Last Admin: 01/18/19 20:58 Dose: 20 mg Documented by: [id number] Scopolamine (Transderm-Scop) 1.5 mg TD Q72H [facility] Stop: 02/17/19 13:59 Last Admin: 01/18/19 14:12 Dose: 1.5 mg Documented by: [id number] Vitamin B Complex (Vitamin B Complex) 2 tab PO QAM [facility] Stop: 02/18/19 08:59 Last Admin: 01/19/19 10:04 Dose: 2 tab Documented by: [id number] Resident Activity Tracking Resident Involvement: Resident Care Provided Care Provided: Adult Hospital Medicine
--- NOTE | 2019-01-19 07:31 | Anesthesiology Progress Note ---
Date of Service January 19, 2019 Anesthesia Post Procedure Vital Signs Vital Signs: Temp Pulse Pulse Resp BP BP Pulse Ox 01/19/19 06:00 68 16 100/49 L 95 01/19/19 05:00 71 16 114/54 L 92 01/19/19 04:00 36.6 C 69 16 107/47 L 92 01/19/19 03:50 70 14 93 01/19/19 03:00 68 16 108/56 L 92 01/19/19 02:00 66 18 109/58 L 92 01/19/19 01:00 68 16 93/54 L 93 01/19/19 00:00 36.5 C 66 16 101/55 L 92 01/18/19 23:22 67 16 92 01/18/19 23:00 74 14 106/59 L 92 01/18/19 22:00 71 14 112/59 L 92 01/18/19 21:00 73 18 98/62 L 94 01/18/19 20:00 36.5 C 72 14 113/60 93 01/18/19 19:59 72 16 94 01/18/19 19:00 66 14 106/52 L 93 01/18/19 17:45 75 19 111/71 95 01/18/19 17:30 76 17 116/62 96 01/18/19 17:15 77 15 120/66 95 01/18/19 17:00 80 14 116/63 94 01/18/19 16:45 71 13 112/59 L 94 01/18/19 16:30 80 22 104/64 94 01/18/19 16:15 73 12 108/64 96 01/18/19 16:00 36.4 C L 73 72 17 100/56 L 95 01/18/19 15:47 71 13 92 01/18/19 15:46 72 12 87/49 L 92 01/18/19 15:45 71 12 92 01/18/19 15:31 72 12 118/55 L 93 01/18/19 15:30 74 12 92 01/18/19 15:15 72 13 118/62 92 01/18/19 15:00 76 23 117/56 L 93 01/18/19 14:45 72 14 116/66 94 01/18/19 14:30 82 20 107/56 L 94 01/18/19 14:15 70 12 116/57 L 95 01/18/19 14:01 70 13 99/55 L 95 01/18/19 14:00 68 13 96 01/18/19 13:47 67 12 96 01/18/19 13:46 68 13 105/57 L 96 01/18/19 13:45 70 12 96 01/18/19 13:31 71 12 111/54 L 95 01/18/19 13:30 69 11 L 95 01/18/19 13:16 73 13 116/58 L 95 01/18/19 13:15 72 12 95 01/18/19 13:01 67 13 119/52 L 95 01/18/19 13:00 67 12 95 01/18/19 12:46 67 12 114/61 94 01/18/19 12:45 71 15 95 01/18/19 12:32 64 15 118/56 L 95 01/18/19 12:30 66 14 95 01/18/19 12:26 68 13 93 01/18/19 12:04 74 14 94 01/18/19 12:01 65 13 116/61 94 01/18/19 11:30 64 16 112/61 95 01/18/19 11:15 36.4 C L 63 16 117/73 96 01/18/19 11:00 61 16 118/65 95 01/18/19 10:45 62 16 117/71 96 01/18/19 10:35 65 16 111/71 96 01/18/19 10:25 67 16 121/68 98 01/18/19 10:15 63 16 120/72 97 01/18/19 10:05 61 16 135/85 99 01/18/19 09:55 56 L 16 131/78 99 01/18/19 09:46 36.0 C L 58 L 14 138/78 96 Notes Mental Status: alert / awake / arousable and participated in evaluation Patient Amnestic to Procedure: Yes Nausea / Vomiting: adequately controlled Pain: adequately controlled Airway Patency, RR, SpO2: stable & adequate BP & HR: stable & adequate Hydration State: stable & adequate Anesthetic Complications: no major complications apparent
[2019-01-19] MEDS ORDERED: NON-FORMULARY MEDICATION (Prevagen 1 TAB) PO SCH (09:00)
[2019-01-19] MEDS: CALCIUM 600MG + VIT D 400 IU TAB PO SCH ×3 (10:04→20:44)
[2019-01-19] MEDS: MULTIVITAMIN TAB PO SCH (10:04)
[2019-01-19] MEDS: VITAMIN B COMPLEX TAB PO SCH (10:04)
[2019-01-19] MEDS: POTASSIUM CITRATE 10 MEQ TAB PO SCH (10:04)
[2019-01-19] MEDS: CHECK SCOPOLAMINE PATCH PLACEMENT SCH ×2 (10:05→15:54)
[2019-01-19] MEDS: LISINOPRIL 10 MG TAB PO SCH (10:05)
[2019-01-19] MEDS: FAMOTIDINE 20 MG TAB PO SCH ×2 (10:05→20:43)
[2019-01-19] MEDS: DOCUSATE SODIUM 100 MG CAP PO SCH ×2 (10:05→20:44)
[2019-01-19] MEDS: ASPIRIN 81 MG ECTAB PO SCH ×2 (10:05→20:43)
--- NOTE | 2019-01-19 10:25 | Orthopedic Progress Note ---
Date of Service January 19, 2019 Assessment & Plan (1) Cervical stenosis of spinal canal: This time we will continue close observation. He may begin transfers to the chair and ambulate about the room as tolerated. We will maintain the EMMA drain another 24 hours. Present on Admission?: Yes Subjective Patient is alert and oriented this morning. He does not describe any cervicalgia or arm pain. At times he seems to have difficulty articulating his thoughts. His is not at the bedside at this time. Physical Exam Vital Signs (Past 24 Hours): Last Vital Signs Temp 36.6 C 01/19/19 04:00 Pulse 81 01/19/19 07:41 Resp 18 01/19/19 07:41 BP 100/49 L 01/19/19 06:00 Pulse Ox 95 01/19/19 07:41 Physical Exam: On exam is reasonable strength testing upper and lower extremities. Dressing is in place. Drain putting out minimal serous fluid.
[2019-01-19] MEDS: ACETAMINOPHEN 1,000 MG/100 ML VIAL IV PRN (20:42)
[2019-01-19] MEDS: PRAVASTATIN SOD 20 MG TAB PO SCH (20:45)
[2019-01-20] MEDS: SODIUM CHLORIDE 0.9% 1000ML 1,000 ML IV SCH (03:20)
--- NOTE | 2019-01-20 06:26 | Critical Care Progress Note ---
Date of Service January 20, 2019 Assessment & Plan (1) Admitted to intensive care unit: Reason critically ill: 78 y/o male with history of alheizmer's dementia, history of HTN, CAD x1 stent to LAD in 2009, Pituitary tumor, HLD, CVA (2010), hypothyroid, prostate cancer w/hx TURP, who had anterior cervical discectomy with significant arterial bleeding on the right during surgery that was controlled with post-op CTA showing occlusion of right. proximal vertebral artery at C5+C6 with reconstitution of flow at C4 requiring post-op cervical neck surgery monitoring. Patient with aberrant vertebral artery that during surgery was noted to not be within foramen transversarium. Neuro: - history of Alzheimer's dementia. - neuro/vascular checks for post-op cervical neck surgery to assess for CVA, no acute events or deficits noted overnight. 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 Cerebellar testing with rapid alternating movements with thumb to pointer finger without deficit or asymmetry. Did not perform finger to nose as prior baseline deficits with coordination and is unreliable. No appreciable nystagmus. No complaints of nausea or vomiting to suggest cerebellar ischemia. 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 - choked on potassium oral pill yesterday which was switched to powder packet for liquid intake, speech consulted for swallow eval. Cardiac/Vascular: - Past Medical Hx of CAD, [place] in 2009 with stent to LAD, HTN, HLD. 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 - current medications include ASA 81mg BID for anti-platelet to prevent futher aggregation or occlusion at occlusion site. - Lisinopril 10mg PO qAM, anti-hypertensive, home dose - Pravastatin 20mg PO qPM for management of HLD, CAD. - Pulse has been WNL with rates ranging 64-85. - Hemodynamically stable - Continuous patient education provided to ensure patient does not cough, clear throat, adhering to voice rest. - Scopolamine patch and Zofran 4mg IV q6H PRN provided for anti-emetic to prevent nausea leading to vomiting which could cause complication from surgery. - Requires anti-HTN monitoring for routine post-op care following ACDF with goals of systolic less than 160 - EMMA drain to be pulled today per ortho note, but will defer to there decision - Vascular with recommendation for repeat CT neck to reassess occlusion today s/p procedure; neck brace recommendation to keep on for 48 hours per vascular progress note, which would be completed today. Pulmonary: - Monitoring for signs of potential swelling status post op, no stridor on auscultation and will continue to monitor. - supplemental oxygen with O2 stat maintain at >92% GI: - Famotidine 20mg BID and Scopolamine patch provided for anti-emetic effect; Zofran 4mg IV q6H PRN also available for anti-emesis. - Diet: continue with liquid diet. Renal/electrolytes: - NSS @80ml/hr : reyes cath Endo: ICU hyperglycemic protocol - no history of DM - history of subclinical hypothyroidism, not requiring synthroid treatment Heme: - will follow CBC for blood loss anemia - EMMA drain with plans for removal today ID: - afebrile, no signs of infectious process - Clindamycin 600mg q8h x3 bags for surgical prophylaxis. Lines: Peripheral lines intact EMMA surgical drain to anterior neck intact DVT: SCDs Resuscitation status: Full Code Supervising Physician Co-Signing Physician Notes Dr. Martin was resident physician during care of patient. I separately evaluated patient for concepcion portions of the history and the exam. I was present during the critical portion of medical decision making, and I discussed the case with the resident. I generally agree with the findings and plan. Patient was discussed in multidisciplinary rounds, I discussed the case with Dr. Banda vascular surgery. I discussed the case with Dr. Biggs of orthopedic surgery. Stable for downgrade out of ICU. Subjective Caveat History Limited by Dementia Demetrio notes no chest pains, fevers, chills, difficulty with speaking, shortness of breath, or dysphagia. Physical Exam Vital Signs (Past 24 Hours): Last Vital Signs Temp 36.6 C 01/20/19 04:00 Pulse 60 01/20/19 06:01 Resp 19 01/20/19 06:01 BP 134/67 01/20/19 06:01 Pulse Ox 93 01/20/19 06:01 Constitutional: cooperative Eyes: + anicteric sclerae and EOM intact bilaterally Neck: anterior dressing in place with EMMA drain intact, no bruits or stridor Respiratory: normal respiratory effort, lungs clear to auscultation Cardiovascular: Rate/Rhythm: regular rate and regular rhythm Gastrointestinal (Abdomen): Inspection/Auscultation: normal bowel sounds Percussion/Palpation: abdomen nontender Musculoskeletal: Extremities: extremities normal to inspection Neurologic: moves all extremities and awake; no focal motor deficits Speech / Cognition: normal speech, no expressive aphasia and no receptive aphasia Cranial Nerves: EOM intact bilaterally, normal facial strength, tongue midline, able to elevate shoulders bilaterally and symmetric palate elevation Coordination: normal rapid alternating movements Psychiatric: Orientation: alert, oriented to person, oriented to time and cooperative; + not oriented to place Apperance: appeared stated age Eye Contact: good eye contact Results & Data Laboratory Results Laboratory Results - last 24 hr 01/19/19 01/20/19 01/20/19 20:40 06:15 08:57 WBC 8.76 RBC 3.43 L Hgb 11.5 L Hct 35.0 L MCV 102.0 H MCH 33.5 MCHC 32.9 RDW Std Deviation 47.8 H RDW Coeff of Daniel 13.0 Plt Count 162 MPV 9.8 Sodium Potassium Chloride Carbon Dioxide Anion Gap BUN Creatinine Est Cr Clr Drug Dosing Est GFR ( Amer) Est GFR (Non-Af Amer) BUN/Creatinine Ratio Glucose POC Glucose 96 98 Calcium 01/20/19 08:57 WBC RBC Hgb Hct MCV MCH MCHC RDW Std Deviation RDW Coeff of Daniel Plt Count MPV Sodium 138 Potassium 4.0 Chloride 108 H Carbon Dioxide 27 Anion Gap 3.0 BUN 18 Creatinine 1.22 Est Cr Clr Drug Dosing 48.5 Est GFR ( Amer) 64.5 Est GFR (Non-Af Amer) 55.6 BUN/Creatinine Ratio 14.6 Glucose 101 H POC Glucose Calcium 8.6 Medications Administered Aspirin (Ecotrin Ectab) 81 mg PO BID [facility] Stop: 02/17/19 20:59 Last Admin: 01/20/19 10:31 Dose: 81 mg Documented by: [id number] Admin: 01/19/19 20:43 Dose: 81 mg Documented by: [id number] Admin: 01/19/19 10:05 Dose: 81 mg Documented by: [id number] Admin: 01/18/19 20:57 Dose: 81 mg Documented by: [id number] Docusate Sodium (Colace) 100 mg PO BID [facility] Stop: 02/17/19 20:59 Last Admin: 01/20/19 10:32 Dose: 100 mg Documented by: [id number] Admin: 01/19/19 20:44 Dose: 100 mg Documented by: [id number] Admin: 01/19/19 10:05 Dose: 100 mg Documented by: [id number] Admin: 01/18/19 20:57 Dose: 100 mg Documented by: [id number] Famotidine (Pepcid) 20 mg PO BID [facility] Stop: 02/17/19 20:59 Last Admin: 01/20/19 10:32 Dose: 20 mg Documented by: [id number] Admin: 01/19/19 20:43 Dose: 20 mg Documented by: [id number] Admin: 01/19/19 10:05 Dose: 20 mg Documented by: [id number] Admin: 01/18/19 20:57 Dose: 20 mg Documented by: [id number] Acetaminophen (Ofirmev) 1,000 mg in 100 mls @ 400 mls/hr IV Q8H PRN PRN Reason: pain rating 1-3 Stop: 02/17/19 12:59 Last Infusion: 01/19/19 20:57 Dose: 0 mls/hr Documented by: [id number] Admin: 01/19/19 20:42 Dose: 400 mls/hr Documented by: [id number] Ioversol (Optiray 320 125ml) 119 ml IV ONCE PRN PRN Reason: Interaction Checking Stop: 01/24/19 08:58 Last Admin: 01/20/19 08:59 Dose: 119 ml Documented by: [id number] Lisinopril (Zestril) 10 mg PO QAM [facility] Stop: 02/18/19 08:59 Last Admin: 01/20/19 10:31 Dose: 10 mg Documented by: [id number] Admin: 01/19/19 10:05 Dose: 10 mg Documented by: [id number] Miscellaneous (Check Scopolamine Patch Placement) 1 ea N/A QS [facility] Stop: 02/17/19 15:59 Last Admin: 01/20/19 16:26 Dose: 1 ea Documented by: [id number] Admin: 01/20/19 10:30 Dose: 1 ea Documented by: [id number] Admin: 01/20/19 00:00 Dose: 1 ea Documented by: [id number] Admin: 01/19/19 15:54 Dose: Not Given Documented by: [id number] Admin: 01/19/19 10:05 Dose: 1 ea Documented by: [id number] Admin: 01/18/19 23:39 Dose: 1 ea Documented by: [id number] Admin: 01/18/19 16:31 Dose: 1 ea Documented by: [id number] Multivitamins (Multivitamin Tab) 1 tab PO QAM [facility] Stop: 02/18/19 08:59 Last Admin: 01/20/19 10:31 Dose: Not Given Documented by: [id number] Admin: 01/19/19 10:04 Dose: 1 tab Documented by: [id number] Multivitamins/Minerals (Caltrate Plus) 1 tab PO BID [facility] Stop: 02/17/19 20:59 Last Admin: 01/20/19 10:23 Dose: Not Given Documented by: [id number] Admin: 01/19/19 20:44 Dose: 1 tab Documented by: [id number] Admin: 01/19/19 10:42 Dose: Not Given Documented by: [id number] Admin: 01/18/19 21:01 Dose: 1 tab Documented by: [id number] Potassium Chloride (Klor-Con Pwd) 20 meq PO QAM [facility] Stop: 02/19/19 08:59 Last Admin: 01/20/19 10:32 Dose: 20 meq Documented by: [id number] Pravastatin Sodium (Pravachol) 20 mg PO QPM [facility] Stop: 02/17/19 20:59 Last Admin: 01/19/19 20:45 Dose: 20 mg Documented by: [id number] Admin: 01/18/19 20:58 Dose: 20 mg Documented by: [id number] Scopolamine (Transderm-Scop) 1.5 mg TD Q72H [facility] Stop: 02/17/19 13:59 Last Admin: 01/18/19 14:12 Dose: 1.5 mg Documented by: [id number] Vitamin B Complex (Vitamin B Complex) 2 tab PO QAM [facility] Stop: 02/18/19 08:59 Last Admin: 01/20/19 10:31 Dose: 2 tab Documented by: [id number] Admin: 01/19/19 10:04 Dose: 2 tab Documented by: [id number] Resident Activity Tracking Resident Involvement: Resident Care Provided Care Provided: Adult Hospital Medicine
[2019-01-20] MEDS ORDERED: OPTIRAY 320 125ml IV PRN (08:59)
--- NOTE | 2019-01-20 09:22 | CT Scan Report ---
CT angio neck wo/w con CLINICAL HISTORY: neck hematoma, eval for possible bleed possible vertebral artery dissection. Caroti d stenosis. COMPARISON STUDY: 01/18/2019 FINDINGS: Unenhanced images were obtained through the neck. CT angiography was then performed in a dy namic helical fashion during intravenous administration 1 through 19 cc of Optiray 320. Mid imaging w as acquired. All measurements were calculated based on NASCET criteria. A dose lowering technique was utilized adhering to the principles of ALARA. There is a persistent surgical drain within the right neck. There is diminished subcutaneous gas. Inflammatory changes are again evident within the maxillary and ethmoid sinuses. Postsurgical changes are again present within the cervical spine. There is evidence for a C3-4 and C4 -5 anterior discectomy with anterior fusion. Atheromatous changes are present at the level of the right carotid bulb. There is a 50% stenosis of t he proximal right internal carotid artery. There are minor atheromatous changes the level the left carotid bulb. There is no significant left in ternal carotid artery stenosis. There is dense calcification of the distal left vertebral artery at the level of the skull base. This makes evaluation of the degree of stenosis difficult but there is a suspected 80% diameter stenosis. The right vertebral artery occludes at the T1 level. There is distal reconstitution at the C4 level. This could be secondary to a dissection. IMPRESSION: 1. 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 This co uld be secondary to a focal dissection 2. 50% stenosis of the proximal right internal carotid artery 3. Suspected 80% stenosis of the distal left vertebral artery. 4. Postsurgical changes at the C3-5 anterior cervical discectomy and fusion 5. Markedly decreased soft tissue gas within the right neck. A right neck drain remains in place. Electronically signed by: Wilson Curtis M.D. 01/20/2019 9:20 AM
[2019-01-20 09:34] LABS: Hemoglobin 11.5 g/dL (14.0-18.0); Mean Corpuscular Hgb Conc 32.9 g/dL (32-36); Mean Platelet Volume 9.8 fL (7.4-10.4); Platelet Count 162 K/uL (130-400); RDW Standard Deviation 47.8 fL (36.4-46.3); Red Blood Count 3.43 M/uL (4.7-6.1); White Blood Count 8.76 K/uL (4.8-10.8)
[2019-01-20] MEDS ORDERED: POLYETHYLENE (MIRALAX) 17 GM PACK PO PRN (09:38)
[2019-01-20 09:55] LABS: BUN Creatinine Ratio 14.6 (10-20); Calcium 8.6 mg/dl (8.5-10.1); Creatinine Clr Calc Pharmacy 48.5 ml/min; Est GFR (African American) 64.5; Est GFR (Non-African American) 55.6
[2019-01-20] MEDS: CALCIUM 600MG + VIT D 400 IU TAB PO SCH ×2 (10:23→21:56)
[2019-01-20] MEDS: CHECK SCOPOLAMINE PATCH PLACEMENT SCH ×4 (10:30→23:57)
[2019-01-20] MEDS: ASPIRIN 81 MG ECTAB PO SCH ×2 (10:31→21:54)
[2019-01-20] MEDS: MULTIVITAMIN TAB PO SCH (10:31)
[2019-01-20] MEDS: VITAMIN B COMPLEX TAB PO SCH (10:31)
[2019-01-20] MEDS: LISINOPRIL 10 MG TAB PO SCH (10:31)
[2019-01-20] MEDS: FAMOTIDINE 20 MG TAB PO SCH ×2 (10:32→21:54)
[2019-01-20] MEDS: POTASSIUM CHLORIDE PWD 20 MEQ PACK PO SCH (10:32)
[2019-01-20] MEDS: DOCUSATE SODIUM 100 MG CAP PO SCH ×2 (10:32→21:56)
--- NOTE | 2019-01-20 11:32 | Communication Note ---
Date of Service: January 20, 2019 CTA showed no extravasation of contrast or hemtoma around the right vertebral. Will need follow up for his left vert which has an 80% narrowing at the origin May remove neck collar.
--- NOTE | 2019-01-20 14:45 | Orthopedic Progress Note ---
Date of Service January 20, 2019 Assessment & Plan (1) Cervical stenosis of spinal canal: At this time he considered stable and ready for transfer [facility] floor. We will discontinue his drain today. Assess his progress hopefully discharge home the next few days. Present on Admission?: Yes Subjective Patient denies any significant neck or arm pain. He still some residual tingling in the right upper extremity. Physical Exam Physical Exam: On exam he is in the chair at the bedside. Has good strength testing. Is alert and oriented. Results & Data Vital Signs (Past 12 Hours) Vital Signs Temp Pulse Pulse Resp BP Pulse Ox 01/20/19 12:01 86 22 138/60 95 01/20/19 12:00 36.5 C 01/20/19 11:37 77 20 96 01/20/19 11:01 64 24 140/75 96 01/20/19 10:01 60 17 112/90 97 01/20/19 09:01 78 19 123/62 95 01/20/19 08:56 85 19 147/68 H 95 01/20/19 08:15 96 01/20/19 08:01 36.5 C 94 H 23 127/59 L 92 01/20/19 07:58 92 H 32 H 133/66 93 01/20/19 07:39 84 16 93 01/20/19 06:01 60 19 134/67 93 01/20/19 05:01 55 L 16 140/67 92 01/20/19 04:01 73 22 136/68 91 01/20/19 04:00 36.6 C 01/20/19 03:49 78 18 93 01/20/19 03:00 57 L 14 100/59 L 94
[2019-01-20] MEDS ORDERED: LIDOCAINE 2% JELLY 5 ML TUBE EXT ONE (19:03)
[2019-01-20] MEDS ORDERED: LIDOCAINE 2% JELLY 5 ML TUBE ONE (19:08)
[2019-01-20] MEDS: PRAVASTATIN SOD 20 MG TAB PO SCH (21:56)
[2019-01-20] MEDS: ACETAMINOPHEN 1,000 MG/100 ML VIAL IV PRN (23:46)
--- NOTE | 2019-01-21 08:18 | Orthopedic Progress Note ---
Date of Service January 21, 2019 Assessment & Plan (1) Cervical stenosis of spinal canal: We will place him on IV Decadron to see if this improves his swallowing function. I would like to obtain a CAT scan of the cervical spine to rule out developing hematoma. Present on Admission?: Yes Subjective Patient is denying any pain at this time. His speech is somewhat limited this morning compared to yesterday. Physical Exam Physical Exam: On exam is good strength testing. Dressing is dry and in place. His neck feels supple but there may be some additional swelling. Results & Data Vital Signs (Past 12 Hours) Vital Signs Temp Pulse Pulse Resp BP Pulse Ox 01/21/19 07:09 36.8 C 66 22 150/69 H 100 01/21/19 06:52 55 L 18 98 01/21/19 03:25 56 L 16 98 01/21/19 03:24 36.8 C 54 L 17 172/87 H 97 01/20/19 23:26 65 16 93 01/20/19 23:00 36.9 C 71 17 173/73 H 97 01/20/19 20:49 37 C 83 16 154/77 H 93
[2019-01-21] MEDS: CHECK SCOPOLAMINE PATCH PLACEMENT SCH ×3 (08:29→23:23)
[2019-01-21] MEDS: DEXAMETHASONE SOD PHOSPHATE 6 MG in SYRINGE 0 ML IV SCH ×2 (09:15→17:49)
--- NOTE | 2019-01-21 09:24 | CT Scan Report ---
CT SCAN OF THE CERVICAL SPINE CLINICAL HISTORY: Postoperative examination. COMPARISON STUDY: CT angiogram of the neck dated 01/20/2019. TECHNIQUE: CT scan of the cervical spine is performed from the skull base to the upper thoracic spine . Images are reviewed in the axial, sagittal, and coronal planes. IV contrast was not administered fo r this examination. A dose lowering technique was utilized adhering to the principles of ALARA. CT DOSE: 332.81 mGy.cm FINDINGS: Skeletal structures: The skeletal structures are osteopenic. There are postoperative changes from ant erior fusion seen from C3 to C5. The orthopedic hardware appears intact. There is no evidence of frac ture or subluxation involving the cervical spine. Vertebral body height is maintained. There is minim al anterolisthesis at C6-C7. Alignment is otherwise preserved. Mild thoracic levocurvature is likely positional. The odontoid process and lateral masses are intact. The atlantoaxial articulation is pres erved. The spinous processes appear intact. There is moderate multilevel cervical spondylosis. Uncove rtebral and facet arthropathy contribute to neural foraminal stenosis at several levels. This is mode rate to severe on the right at C3-C4, C4-C5, C5-C6, and C6-C7, and is moderate on the left at C4-C5. Intervertebral discs: There is been discectomy at C3-C4 and C4-C5. Advanced disc space narrowing is s een at C5-C6. Mild disc space narrowing is noted at C6-C7. Central canal: Small posterior disc osteophyte complexes at C3-C4, C4-C5, C5-C6, and C6-C7 may contri bute to mild acquired compromise of the central canal. Soft tissues: Prevertebral soft tissue edema is nonspecific and likely related to the reported histor y of recent surgery. The paraspinous soft tissues are within normal limits. There is atherosclerotic calcification of the carotid bulbs. Cerumen is noted within the right external auditory canal. The th yroid gland is atrophic and heterogeneous. A surgical drain has been removed from yesterday. Calvarium: The visualized calvarium at the skull base appears intact. Brain parenchyma: Partially visualized brain parenchyma the skull base is within normal limits. Sinuses and mastoids: The visualized paranasal sinuses are clear. The mastoid air cells are well pneu matized. Lung apices: Clear as visualized. IMPRESSION: 1. There is no evidence of fracture or subluxation involving the cervical spine. 2. There are postoperative changes from anterior fusion seen from C3 to C5. The orthopedic hardware a ppears intact. 3. Osteopenia and spondylotic change as above. 4. Prevertebral soft tissue swelling is nonspecific and likely related to recent surgery. Clinical co rrelation will be required. Electronically signed by: Aarno Vance M.D. 01/21/2019 9:23 AM
[2019-01-21] MEDS: CALCIUM 600MG + VIT D 400 IU TAB PO SCH ×2 (10:00→21:47)
[2019-01-21] MEDS: VITAMIN B COMPLEX TAB PO SCH (10:01)
[2019-01-21] MEDS: ASPIRIN 81 MG ECTAB PO SCH ×2 (10:01→21:47)
[2019-01-21] MEDS: FAMOTIDINE 20 MG TAB PO SCH ×2 (10:01→21:47)
[2019-01-21] MEDS: LISINOPRIL 10 MG TAB PO SCH (10:01)
[2019-01-21] MEDS: POTASSIUM CHLORIDE PWD 20 MEQ PACK PO SCH (10:01)
[2019-01-21] MEDS: MULTIVITAMIN TAB PO SCH (10:01)
[2019-01-21] MEDS: DOCUSATE SODIUM 100 MG CAP PO SCH ×2 (10:01→21:47)
[2019-01-21] MEDS: SODIUM CHLORIDE 0.9% 1000ML 1,000 ML IV SCH (10:25)
--- NOTE | 2019-01-21 11:31 | Internal Medicine Consult Note ---
Date of Consultation January 21, 2019 Assessment & Plan (1) Cervical stenosis of spinal canal: surgical team has started IV Decadron to see if this improves his swallowing function. Schedule CAT scan of the cervical spine showed no evidence of seroma or hematoma no malalignment of hardware or changes of his axial skeleton Because of the vertebral artery narrowing a CT scan of his brain was undertaken due to his movement disorder and speech problems. This was unremarkable for any type of CVA (2) Hx of myocardial infarction: pt typically takes aspirin/ plavix which has been held, lisinoprol 10 mg and pravastatin(althought with history of stroke atorvostatin or rosuvistatin maybe preferable) (3) Pituitary tumor: (4) BPH (benign prostatic hyperplasia): (5) Hx TIA/stroke w/o resid: typically takes asprin and plavix and a statin repeat CT scan does not show stroke will resume antiplatelet therapy when vascular surgery feels is appropriate History of Present Illness Attending Physician: Tarik Biggs, History of Present Illness Patient underwent cervical spine surgery for cervical spinal stenosis. During the surgery there was an injury to the vertebral artery which was repaired by Dr. Banda there is persistent narrowing is seen by CT angiogram performed 417. We had a medical consultation originated. I evaluate the patient presence of his family he does have baseline dementia. Preceding the surgery he has some right shoulder girdle weakness. He continues to have that same weakness however he does have intact automatic buffing wheel former strength distally and claims to have good subjective sensation. Because of some difficulty moving his right arm concern for coordination he was sent for a CT scan of his brain which did not show any signs or symptoms of embolic or ischemic stroke. Allergies Allergy/AdvReac Type Severity Reaction Status Date / Time propoxyphene Allergy Severe POSS. Verified 01/18/19 05:58 CARDIAC ARREST doxycycline Allergy Unknown Unknown Verified 01/18/19 06:10 morphine Allergy Unknown "NEAR Verified 01/18/19 05:58 " - TOLERATES FENTANYL Penicillins Allergy Unknown Unknown Verified 01/18/19 06:10 Home Medications Home Medications Medication Instructions Recorded Confirmed Type Prevagen 1 tab PO QAM 12/31/18 01/18/19 History aspirin [Aspirin Low Dose] 81 mg PO BID 12/31/18 01/18/19 History calcium carbonate-vitamin D3 1 tab PO BID 12/31/18 01/18/19 History [Calcium 500 With D] clopidogrel 75 mg PO QPM 12/31/18 01/18/19 History coenzyme Q10 [CoQ-10] 200 mg PO QPM 12/31/18 12/31/18 History famotidine 20 mg PO BID 12/31/18 01/18/19 History lisinopril 10 mg PO QAM 12/31/18 01/18/19 History multivitamin 1 tab PO QAM 12/31/18 01/18/19 History nitroglycerin [Nitrostat] 1 tab SUBLINGUAL DIRECTED 12/31/18 01/18/19 History peg 400-propylene glycol (PF) 1 drp OPHTHALMIC (EYE) BID PRN 12/31/18 History [Systane (PF)] pitavastatin calcium [Livalo] 2 mg PO QPM 12/31/18 01/18/19 History potassium citrate 10 meq PO BID 12/31/18 01/18/19 History pravastatin 20 mg PO QPM 12/31/18 01/18/19 History vitamin B complex 2 tab PO QAM 12/31/18 01/18/19 History acetaminophen [Acetaminophen Extra 1,000 mg PO Q6H PRN 01/18/19 01/18/19 History Strength] Patient History Family History Grandmother (Paternal) Family history of diabetes mellitus Social History Preferred Language: Yoruba Communication Ability: Unable Beliefs That Will Affect Care: None Current Living Situation: Spouse Other Information That Helps Us Care for You: No Feels Safe at Home: Yes Safety Concerns: Feels Safe At This Time Smoking Status: Never smoker Do You Dip or Chew Tobacco: No Hx Alcohol Use: No Hx Substance Use: No Review of Systems Review of Systems: ROS: well nourished well developed. No double vision blurry vision No problems with speech or swallowing No palpitations, chest pain or pressure No Wheezing or breathing issues No abdominal pain nausea vomiting diarrhea changes in appetite or weight No burning urine urine frequency or changes in color No focal joint pain or muscle pain No skin rashes or oral lesions No unusual bruising or bleeding Patient has baseline dementia is a mumbling type of speech his family says is normal for him. He was having some difficulty swallowing at the speech therapy evaluate the patient. The patient also has some difficulty moving his right shoulder girdle but has good automatic buffing wheel former strength Physical Exam Physical Exam: The patient appeared well nourished and normally developed. Vital signs as documented. Head exam is unremarkable. normocephalic, atraumatic Neck is with rigid c-collar is in place there is some minor swelling the color does not appear to be tightened I hear no bruits there is no stridor he is handling his own secretions Lungs are clear to auscultation and percussion. Cardiac exam reveals Rhythm is regular. First and second heart sounds normal. Abdominal exam reveals normal bowel sounds, no masses, no organomegaly Extremities are nonedematous and both pedal pulses are present Neurologic exam is A&Ox3, patient is a weakness he cannot raise his right arm against gravity. He does have 5/5 intact right hand automatic buffing wheel former strength he has sensation intact bilaterally therefore palmar drift is assessed he cannot lift his arm to participate with that Psychologically seems neither anxious or depressed Skin is warm Dry without bruises or lesions Results & Data Vital Signs (Past 12 Hours) Vital Signs Temp Pulse Pulse Resp BP Pulse Ox 01/21/19 11:22 36.6 C 60 18 164/79 H 96 01/21/19 07:09 36.8 C 66 22 150/69 H 100 01/21/19 06:52 55 L 18 98 01/21/19 03:25 56 L 16 98 01/21/19 03:24 36.8 C 54 L 17 172/87 H 97 01/20/19 23:26 65 16 93
[2019-01-21] MEDS: SCOPOLAMINE 1.5 MG TDSY TD SCH (14:12)
--- NOTE | 2019-01-21 15:30 | CT Scan Report ---
CT SCAN OF THE BRAIN WITHOUT IV CONTRAST CLINICAL HISTORY: Change in mental status. COMPARISON STUDY: CT of the brain dated 09/27/2014. TECHNIQUE: Unenhanced axial CT scan of the brain is performed from the vertex to the skull base. A do se lowering technique was utilized adhering to the principles of ALARA. CT DOSE: 614.27 mGy.cm FINDINGS: Brain parenchyma: There are age-related involutional changes noting moderate patchy subcortical and periventricular microangiopathic change. There is no hemorrhage, mass effect, or evidence of acute te rritorial ischemia by CT criteria. Ng-white matter differentiation is preserved. No extra-axial flu id collection is seen. Ventricles, sulci, cisterns: Prominent secondary to involutional change. Intracranial vasculature: There is atherosclerotic calcification of the cavernous carotid and vertebr al arteries. Calvarium: Unremarkable. Sinuses and mastoids: There is evidence of previous paranasal sinus surgery. Moderate mucosal thicken ing is seen in the right maxillary antrum. Mild mucosal thickening is noted in the left maxillary ant rum, the ethmoid sinuses, and the left frontal sinus. The mastoid air cells are well pneumatized. Orbits: The bony orbits are grossly intact. IMPRESSION: There is no hemorrhage, mass effect, or evidence of acute territorial ischemia by CT anabelle dozier. Electronically signed by: Aaron Vance M.D. 01/21/2019 3:29 PM
[2019-01-21] MEDS: PRAVASTATIN SOD 20 MG TAB PO SCH (21:47)
--- NOTE | 2019-01-21 21:48 | XRay Report ---
XR chest 1V portable CLINICAL HISTORY: Shortness of breath. Possible pneumonia. COMPARISON STUDY: 01/05/2019 FINDINGS: There are low lung volumes. There is diffuse interstitial prominence, likely secondary to a hypoventilatory study. There is no lobar consolidation. Trace pleural effusions are suspected. There is a line shadow at the right lung base. This may represent the minor fissure given the markedly dim inished lung volumes. If there is clinical concern over the presence of a pneumoperitoneum, then decu bitus views of the abdomen should be obtained in follow-up.[ IMPRESSION: 1. Hypoventilatory study with basilar atelectasis 2. No evidence of lobar consolidation 3. Line shadow at the right lung base, likely representing the minor fissure. If there is clinical co ncern over the presence of a pneumoperitoneum, then decubitus views of the abdomen should be obtained in follow-up Electronically signed by: Wilson Curtis M.D. 01/21/2019 9:46 PM
--- NOTE | 2019-01-21 23:04 | Progress Note ---
Date of Service January 21, 2019 Assessment & Plan (1) Hypoxia: S: Respond to call -- patient with noisey breathing. PMH of dementia, recent cervical decompression. Patient has a 1:1, unable to provide history. O: Stable vitals, requiring 2 L NC, Normal WOB, rhonchi bilaterally. CXR concern for pneumoperitoneum. A/P: Transfer to [facility] for closer respiratory monitoring, Repeat chest films abdomen/chest, decubitus Results & Data Vital Signs (Past 12 Hours) Vital Signs Temp Pulse Pulse Resp BP Pulse Ox 01/21/19 19:36 67 16 97 01/21/19 15:04 36.8 C 62 18 148/79 H 96 01/21/19 12:58 37.2 C 77 18 147/76 H 95 01/21/19 11:30 64 18 96 01/21/19 11:22 36.6 C 60 18 164/79 H 96
[2019-01-22] MEDS: DEXAMETHASONE SOD PHOSPHATE 6 MG in SYRINGE 0 ML IV SCH ×3 (00:39→16:16)
[2019-01-22] MEDS: SODIUM CHLORIDE 0.9% 1000ML 1,000 ML IV SCH ×2 (01:42→18:04)
--- NOTE | 2019-01-22 07:04 | XRay Report ---
XR abdomen min 2V CLINICAL HISTORY: bilateral rhonchi. Possible pneumoperitoneum on chest radiograph. COMPARISON STUDY: Abdominal series September 19, 2016. FINDINGS: Left hip arthroplasty is incidentally noted. There is no evidence for a bowel obstruction. There is a moderate amount stool within the colon. Due to difficulty positioning, evaluation for pne umoperitoneum is suboptimal on this exam. No definite evidence for free air. IMPRESSION: 1. No definite evidence for pneumoperitoneum however technically difficult exam. A CT of the abdomen and pelvis could be obtained for further evaluation. 2. No evidence for a bowel obstruction. Electronically signed by: Moose Zapien M.D. 01/22/2019 7:03 AM
--- NOTE | 2019-01-22 07:06 | XRay Report ---
XR chest decubs CLINICAL HISTORY: bilateral rhonchi. Possible free air on chest radiograph. COMPARISON STUDY: No previous studies for comparison. FINDINGS: Evaluation is compromised due to difficulty positioning. There is no convincing evidence fo r free air. No definite layering pleural effusion is noted. No pneumothorax is identified. IMPRESSION: Technically difficult exam. No convincing evidence for free air however a CT of the abdomen and pelvi s could be obtained for further evaluation. Electronically signed by: Moose Zapien M.D. 01/22/2019 7:05 AM
[2019-01-22] MEDS: CHECK SCOPOLAMINE PATCH PLACEMENT SCH ×2 (08:31→16:16)
[2019-01-22] MEDS: VITAMIN B COMPLEX TAB PO SCH (08:32)
[2019-01-22] MEDS: POTASSIUM CHLORIDE PWD 20 MEQ PACK PO SCH (08:32)
[2019-01-22] MEDS: CALCIUM 600MG + VIT D 400 IU TAB PO SCH (08:32)
[2019-01-22] MEDS: DOCUSATE SODIUM 100 MG CAP PO SCH (08:32)
[2019-01-22] MEDS: FAMOTIDINE 20 MG TAB PO SCH (08:32)
[2019-01-22] MEDS: MULTIVITAMIN TAB PO SCH (08:32)
[2019-01-22 08:49] LABS: BUN Creatinine Ratio 20.9 (10-20); Calcium 9.3 mg/dl (8.5-10.1); Est GFR (Non-African American) 69.9
[2019-01-22 09:11] LABS: Hematocrit (blood only) 36.5 % (42-52); Hemoglobin 12.7 g/dL (14.0-18.0); Immature Granulocytes # (auto) 0.02 K/uL (0.00-0.02); Immature Granulocytes % (auto) 0.2 %; Lymphocytes # (auto) 0.52 K/uL (1.2-3.4); Lymphocytes % (auto) 5.8 %; Mean Corpuscular Hgb Conc 34.8 g/dL (32-36); Mean Corpuscular Volume 95.8 fL (80-100); Mean Platelet Volume 9.7 fL (7.4-10.4); Monocytes % (auto) 3.3 %; Neutrophils % (auto) 90.7 %; Platelet Count 203 K/uL (130-400); RDW Coefficient of Variation 12.3 % (11.5-14.5); RDW Standard Deviation 42.6 fL (36.4-46.3); Red Blood Count 3.81 M/uL (4.7-6.1); White Blood Count 9.04 K/uL (4.8-10.8)
--- NOTE | 2019-01-22 11:00 | Orthopedic Progress Note ---
Date of Service January 22, 2019 Assessment & Plan (1) Cervical stenosis of spinal canal: At this time we will maintain the cervical collar at all times if possible. He is currently on IV Decadron to help with swelling in his esophagus and hopefully his swallowing will improve over the course the next few days. Present on Admission?: Yes Subjective Patient is very sleepy this morning during our examination. Apparently he was up most of the evening somewhat irritated. He is arousable Physical Exam Physical Exam: On exam the collar is in place. His neck is supple there is no evidence of swelling or drainage. Again he is quite sleepy during our exam today. He is however arousable. Results & Data Vital Signs (Past 12 Hours) Vital Signs Temp Pulse Pulse Pulse Resp BP Pulse Ox 01/22/19 08:00 64 01/22/19 07:07 36.8 C 60 18 149/79 H 98 01/22/19 04:00 56 L 19 01/22/19 03:53 93 01/22/19 03:45 36.8 C 63 18 160/88 H 91 01/22/19 03:42 71 19 91 01/22/19 01:43 76 01/22/19 01:36 36.7 C 73 20 163/91 H 96 01/21/19 23:52 63 18 95 01/21/19 23:08 36.7 C 67 20 154/84 H 94 Pulse Ox 01/22/19 08:00 01/22/19 07:07 01/22/19 04:00 93 01/22/19 03:53 01/22/19 03:45 01/22/19 03:42 01/22/19 01:43 01/22/19 01:36 01/21/19 23:52 01/21/19 23:08
[2019-01-22] MEDS ORDERED: HydrALAZINE HCL 20 MG/ML VIAL IV PRN (11:47)
[2019-01-22 12:06] LABS: HCO3 ABG 23 mmol/L (19-24); PCO2 ABG 32 mmHg (35-46); PO2 ABG 101 mm/Hg (80-95); pH ABG 7.46 (7.35-7.45)
[2019-01-22 12:08] LABS: Allen Test Pos (Pos)
[2019-01-22 12:21] LABS: Albumin Level 3.6 gm/dl (3.4-5.0); BUN Creatinine Ratio 21.6 (10-20); Calcium 9.4 mg/dl (8.5-10.1); Est GFR (Non-African American) 69.9; Potassium 4.1 mmol/L (3.5-5.1)
[2019-01-22 12:24] LABS: Bilirubin,Total 0.6 mg/dl (0.2-1); Globulin 3.7 gm/dl (2.5-4.0); Total Protein 7.4 gm/dl (6.4-8.2)
[2019-01-22] MEDS: LISINOPRIL 10 MG TAB PO SCH (14:10)
[2019-01-22] MEDS: ASPIRIN 81 MG ECTAB PO SCH (14:10)
--- NOTE | 2019-01-22 15:38 | XRay Report ---
XR KUB/Abdomen 1 view CLINICAL HISTORY: check coresafe placement tube position COMPARISON STUDY: 01/21/2019 FINDINGS: Feeding tube placed within the gastric fundus. Nonobstructive bowel pattern. IMPRESSION: Feeding tube placed within the gastric fundus. The above report was generated using voice recognition software. It may contain grammatical, syntax or spelling errors. Electronically signed by: Spike Cintron M.D. 01/22/2019 3:36 PM
--- NOTE | 2019-01-22 16:40 | Hospitalist Progress Note ---
Date of Service January 22, 2019 Assessment & Plan (1) Encephalopathy: Patient had acute encephalopathy last evening is unclear etiology. We evaluated him for hypercarbia from ventilation issues possibly related to his aspiration events the ABG was without symptoms or signs of that. 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 I previously is CT scan of his head was performed to rule out any type of intracranial issues given the fact that he had some narrowing of his vertebral artery it was noted around the perioperative period. Patient had a CT Sadie Howard of his neck previously also to look for interval changes in the operative site this was without acute concern This may well be sundowning behavior in a patient who is markedly demented at baseline. However his dysphasia post procedure prevents use of oral medications to control this. We are attempting to place a nasogastric feeding tube to allow us to use some oral medications to help with sundowning at night (2) Aspiration into airway: Patient at the bedside was able to swallow appropriately, speech therapy saw the patient today and document observed aspiration during attempts of evaluation therefore is made strict n.p.o. Attempts at nasogastric feeding tube placement will be undertaken which is made challenging given his rigid c-collar in inability to follow commands appropriately. There does not appear to be currently acute aspiration pneumonia at this time. Because of his n.p.o. status we will institute hydration (3) Cervical stenosis of spinal canal: surgical team has started IV Decadron to see if this improves his swallowing function. Schedule CAT scan of the cervical spine showed no evidence of seroma or hematoma no malalignment of hardware or changes of his axial skeleton Because of the vertebral artery narrowing a CT scan of his brain was undertaken due to his movement disorder and speech problems. This was unremarkable for any type of CVA (4) Hx of myocardial infarction: pt typically takes aspirin/ plavix which has been held For hypertension if need to be his intravenous enalapril or hydralazine until oral intake is secured with history of stroke atorvostatin or rosuvistatin maybe preferable (5) Pituitary tumor: (6) BPH (benign prostatic hyperplasia): (7) Hx TIA/stroke w/o resid: typically takes asprin and plavix and a statin repeat CT scan does not show stroke will resume antiplatelet therapy when vascular surgery feels is appropriate and patient taking po well Subjective Mr. Hook had a significant issues of sundowning last night and was also unable to swallow. He was transferred to telemetry due to concerns for abnormal chest x-ray which upon repeat were unfounded his is at the bedside markedly concerned. Speech therapy did personally discussed with me the fact that he aspirated at the bedside and they do recommend strict n.p.o. status. This was communicated to the who is in agreement to try a feeding tube to begin giving him oral medications and feedings. Patient himself is pleasantly confused and did not contribute much to the conversation that was worthwhile Review of Systems Review of Systems: Unobtainable due to cognitive status Physical Exam Physical Exam: The patient appeared well nourished and normally developed. Vital signs as documented. Head exam is unremarkable. normocephalic, atraumatic Neck is with rigid c-collar in place Lungs are clear to auscultation decreased at the bases Cardiac exam reveals Rhythm is regular. First and second heart sounds normal. 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
--- NOTE | 2019-01-22 17:02 | XRay Report ---
XR KUB/Abdomen 1 view CLINICAL HISTORY: placement of coresafe feeding tube /for meds/feeds COMPARISON STUDY: 01/22/2019 FINDINGS: A single film centered on the upper abdomen is provided for interpretation. There is a feed ing tube] within the stomach. IMPRESSION: The feeding tube is positioned within the stomach. Electronically signed by: Wilson Curtis M.D. 01/22/2019 5:01 PM
[2019-01-22 18:11] LABS: C Reactive Protein 3.8 mg/dl (0-0.29); Prealbumin 20.6 mg/dl (20-40)
[2019-01-22] MEDS: ACETAMINOPHEN 1,000 MG/100 ML VIAL IV PRN (19:47)
[2019-01-22] MEDS ORDERED: MAGNESIUM HYDROXIDE SUSP 30 ML UDC NG PRN (22:15)
[2019-01-22] MEDS ORDERED: POLYETHYLENE (MIRALAX) 17 GM PACK NG PRN (22:15)
[2019-01-22] MEDS ORDERED: ACETAMINOPHEN SOLN 500 MG/15.62 ML UDP NG PRN (22:23)
[2019-01-22] MEDS ORDERED: OXYCODONE HCL IR 5 MG TAB (IMMEDIATE RELEASE) NG PRN (22:30)
[2019-01-22] MEDS: CALCIUM CARBONATE 1,250 MG/5 ML UDC NG SCH (23:15)
[2019-01-22] MEDS: DOCUSATE SODIUM SYRUP 100 MG/10 ML UDC NG SCH (23:16)
[2019-01-22] MEDS: ASPIRIN 81 MG CHEW NG SCH (23:17)
[2019-01-22] MEDS: QUETIAPINE FUMARATE 25 MG TABLET NG SCH (23:18)
[2019-01-22] MEDS: CHOLECALCIFEROL (VITAMIN D) 400 UNITS TABLET NG SCH (23:24)
[2019-01-22] MEDS: PRAVASTATIN SOD 20 MG TAB PO SCH (23:57)
[2019-01-23] MEDS: CHECK SCOPOLAMINE PATCH PLACEMENT SCH ×4 (00:02→23:04)
[2019-01-23] MEDS: DEXAMETHASONE SOD PHOSPHATE 6 MG in SYRINGE 0 ML IV SCH ×3 (01:31→17:28)
[2019-01-23] MEDS: FIBERSOURCE HN 1.2 CAL 1000 ML BAG NG SCH (01:47)
[2019-01-23] MEDS: SODIUM CHLORIDE 0.9% 1000ML 1,000 ML IV SCH ×3 (03:12→22:52)
[2019-01-23] MEDS: DOCUSATE SODIUM 100 MG CAP PO SCH (06:49)
[2019-01-23] MEDS: FAMOTIDINE 20 MG TAB PO SCH ×3 (06:49→20:57)
[2019-01-23] MEDS: CALCIUM 600MG + VIT D 400 IU TAB PO SCH (06:49)
[2019-01-23] MEDS: ASPIRIN 81 MG ECTAB PO SCH (06:49)
--- NOTE | 2019-01-23 08:00 | Orthopedic Progress Note ---
Date of Service January 23, 2019 Assessment & Plan (1) Cervical stenosis of spinal canal: Patient stable postoperative day #5. There and continue with nutritional support through the NG tube. He needs to maintain his collar. We will continue with GI and DVT prophylaxis. We will see how he does over the weekend see if he is ready for progression on Friday. Subjective Patient presents postoperative day #5. Today the patient is alert. He answers questions appropriately. But is not oriented to place or time. He has no complaints today. NG tube has been placed. He seems to be tolerating this well. Per the CARDIOVASCULAR RADIOLOGIC TECHNOLOGIST bedside patient had a good night. He denies any significant numbness or tingling. He still is having some difficulty swallowing. Physical Exam Physical Exam: On exam the patient answers questions appropriately. There is minimal swelling in the neck itself. He has good underwear welter strength bilaterally. NG tube is in place. The patient has no physical restraints at this point. Results & Data Vital Signs (Past 12 Hours) Vital Signs Temp Pulse Pulse Pulse Resp BP Pulse Ox 01/23/19 07:47 53 L 16 95 01/23/19 06:51 36.8 C 57 L 16 139/80 94 01/23/19 04:00 36.9 C 59 L 19 144/73 H 92 01/23/19 03:29 75 18 95 01/22/19 23:33 36.9 C 66 20 136/68 94 01/22/19 23:26 80 16 93 01/22/19 20:00 55 L
[2019-01-23] MEDS: LISINOPRIL 10 MG TAB PO SCH (08:22)
[2019-01-23] MEDS: ASPIRIN 81 MG CHEW NG SCH ×2 (08:27→20:57)
[2019-01-23] MEDS: CHOLECALCIFEROL (VITAMIN D) 400 UNITS TABLET NG SCH ×2 (08:28→20:58)
[2019-01-23] MEDS: DOCUSATE SODIUM SYRUP 100 MG/10 ML UDC NG SCH ×2 (08:28→20:58)
[2019-01-23] MEDS: MULTI VIT W/MINERALS LIQUID 15 ML UDP NG SCH (08:28)
[2019-01-23] MEDS: VITAMIN B COMPLEX TAB PO SCH (08:28)
[2019-01-23] MEDS: CALCIUM CARBONATE 1,250 MG/5 ML UDC NG SCH ×2 (08:28→20:59)
[2019-01-23] MEDS: POTASSIUM CHLORIDE PWD 20 MEQ PACK NG SCH (08:28)
[2019-01-23] MEDS ORDERED: MULTI VIT W/MINERALS LIQUID 15 ML UDP PO SCH (09:00)
--- NOTE | 2019-01-23 15:17 | Hospitalist Progress Note ---
Date of Service January 23, 2019 Assessment & Plan (1) Encephalopathy: Patient had acute encephalopathy 01/22 unclear etiology. We evaluated him for hypercarbia from ventilation issues possibly related to his aspiration events the ABG was without symptoms or signs of that. His chest x-ray was performed which did not show acute infection or heart failure liver function tests were obtained looking for possible hepatic encephalopathy this was unremarkable CT scan of his head was performed to rule out any type of intracranial issues given the fact that he had some narrowing of his vertebral artery it was noted around the perioperative period. Patient had a CT angiogram of his neck previo usly also to look for interval changes in the operative site this was without acute concern This may well be sundowning behavior in a patient who is markedly demented at baseline. This did improve with Seroquel at bedtime are using as needed Haldol for behavior control (2) Aspiration into airway: speech therapy did evaluate the patient and did document observed aspiration during attempts of evaluation therefore is made strict n.p.o. There does not appear to be currently acute aspiration pneumonia at this time. NG tube was placed in patient's on tube feeding at this point time also enables us to give oral medications to control his behavior (3) Cervical stenosis of spinal canal: surgical team has started IV Decadron to see if this improves his swallowing function. Speech will reevaluate his swallowing in the next 1-2 days Schedule CAT scan of the cervical spine showed no evidence of seroma or hematoma no malalignment of hardware or changes of his axial skeleton Because of the vertebral artery narrowing a CT scan of his brain was undertaken due to his movement disorder and speech problems. This was unremarkable for any type of CVA (4) Hx of myocardial infarction: pt typically takes aspirin/ plavix which will continue to be held For hypertension if need to be his intravenous enalapril or hydralazine until oral intake is secured with history of stroke atorvostatin or rosuvistatin maybe preferable (5) Pituitary tumor: (6) BPH (benign prostatic hyperplasia): (7) Hx TIA/stroke w/o resid: typically takes asprin and plavix and a statin repeat CT scan does not show stroke will resume antiplatelet therapy when vascular surgery feels is appropriate and patient taking po well Subjective Patient seems calm today is tolerating tube feeding he is still fairly confused does have a one-to-one sitter at the bedside Review of Systems Review of Systems: Unobtainable due to cognitive status Physical Exam Physical Exam: The patient appeared well nourished and normally developed. Cervical collar is in place Vital signs as documented. Head exam is unremarkable. normocephalic, atraumatic is not drooling he is handling his own secretions Neck is midline there is no stridor Lungs are clear to auscultation and percussion. Cardiac exam reveals Rhythm is regular. Abdominal exam reveals normal bowel sounds, no masses, no organomegaly Extremities are nonedematous and both pedal pulses are present Neurologic exam is A&Ox2, he is to have right shoulder weakness but good hand almond blancher strength Psychologically seems fairly significant baseline dementia Skin is warm Dry without bruises or lesions Results & Data Vital Signs (Past 12 Hours) Vital Signs Temp Pulse Pulse Pulse Resp BP Pulse Ox 01/23/19 11:12 58 L 18 92 01/23/19 11:10 58 L 16 139/68 92 01/23/19 08:00 56 L 01/23/19 07:47 53 L 16 95 01/23/19 06:51 36.8 C 57 L 16 139/80 94 01/23/19 04:00 36.9 C 59 L 19 144/73 H 92 01/23/19 03:29 75 18 95
[2019-01-23] MEDS: PRAVASTATIN SOD 20 MG TAB PO SCH (20:56)
[2019-01-23] MEDS: QUETIAPINE FUMARATE 25 MG TABLET NG SCH (20:58)
[2019-01-24] MEDS: DEXAMETHASONE SOD PHOSPHATE 6 MG in SYRINGE 0 ML IV SCH ×4 (00:26→23:46)
[2019-01-24] MEDS: FIBERSOURCE HN 1.2 CAL 1000 ML BAG NG SCH ×2 (06:12→22:43)
[2019-01-24] MEDS: CHECK SCOPOLAMINE PATCH PLACEMENT SCH ×3 (07:49→23:46)
[2019-01-24] MEDS: FAMOTIDINE 20 MG TAB PO SCH ×2 (07:50→21:39)
[2019-01-24] MEDS: POTASSIUM CHLORIDE PWD 20 MEQ PACK NG SCH (07:50)
[2019-01-24] MEDS: VITAMIN B COMPLEX TAB PO SCH (07:50)
[2019-01-24] MEDS: CALCIUM CARBONATE 1,250 MG/5 ML UDC NG SCH ×2 (07:50→21:38)
[2019-01-24] MEDS: CHOLECALCIFEROL (VITAMIN D) 400 UNITS TABLET NG SCH ×2 (07:50→21:40)
[2019-01-24] MEDS: SODIUM CHLORIDE 0.9% 1000ML 1,000 ML IV SCH ×2 (07:50→18:13)
[2019-01-24] MEDS: DOCUSATE SODIUM SYRUP 100 MG/10 ML UDC NG SCH ×2 (07:50→21:39)
[2019-01-24] MEDS: LISINOPRIL 10 MG TAB PO SCH (07:50)
[2019-01-24] MEDS: ASPIRIN 81 MG CHEW NG SCH ×2 (07:50→21:38)
[2019-01-24] MEDS: MULTI VIT W/MINERALS LIQUID 15 ML UDP NG SCH (07:50)
--- NOTE | 2019-01-24 10:22 | Orthopedic Progress Note ---
Date of Service January 24, 2019 Assessment & Plan (1) Cervical stenosis of spinal canal: This point will continue with nutritional support. He is going to have reevaluation through speech pathology for his swallowing issues. We will continue with his collar at this point and see how he progresses. Subjective Patient presents postoperative day #6. He still is having bouts of confusion and sundowning type behavior. He is better with his medications at this point. He is alert but disoriented to place and time. He is having no complaints of pain at this point. But is still having difficulty swallowing an NG tube in place. Physical Exam Physical Exam: On exam the patient is alert. His dressing is clean dry and intact. There is minimal swelling in the neck itself. NG tube is in place. 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 Calves are supple and nontender abdomen soft, nontender. Results & Data Vital Signs (Past 12 Hours) Vital Signs Temp Pulse Pulse Resp BP Pulse Ox 01/24/19 08:00 50 L 01/24/19 07:17 63 18 96 01/24/19 07:05 36.8 C 51 L 20 166/87 H 95 01/24/19 04:01 36.7 C 53 L 19 162/75 H 92 01/24/19 03:09 52 L 16 96 01/24/19 00:00 57 L 01/23/19 23:32 36.8 C 55 L 20 173/74 H 94 01/23/19 23:09 93 H 16 95
--- NOTE | 2019-01-24 10:35 | XRay Report ---
KUB HISTORY: Coresafe placement COMPARISON: KUB 01/22/2019. FINDINGS: The bowel gas pattern is unremarkable. There are no dilated loops of small bowel to suggest an obstruction. No renal calculi. No ureteral calculi. No pneumoperitoneum or pneumatosis. Feeding tube is in a postpyloric location and therefore likely good position. IMPRESSION: Feeding tube appears in good position. Electronically signed by: Coy Coello M.D. 01/24/2019 10:34 AM
[2019-01-24] MEDS: SCOPOLAMINE 1.5 MG TDSY TD SCH (13:02)
--- NOTE | 2019-01-24 14:31 | Hospitalist Progress Note ---
Date of Service January 24, 2019 Assessment & Plan (1) Encephalopathy: Patient had acute encephalopathy 01/22/2019 unclear etiology. Seems has been improving ABG unremarkable, chest x-ray NAD heart failure liver function were unremarkable CT scan of his head was performed has ruled out any type of intracranial issues CT angiogram of his neck without acute concern maybe ing behavior cont Seroquel at bedtime are using as needed Haldol for behavior control (2) Aspiration into airway: speech therapy did evaluate the patient and did document observed aspiration during attempts of evaluation therefore is made strict n.p.o. currently no acute aspiration pneumonia at this time. NG tube was placed in patient's on tube feeding at this point time also enables us to give oral medications to control his behavior, continue (3) Cervical stenosis of spinal canal: surgical team has started IV Decadron to see if this improves his swallowing function. Speech will reevaluate his swallowing in the next 1-2 days Because of the vertebral artery narrowing a CT scan of his brain was undertaken due to his movement disorder and speech problems. This was unremarkable for any type of CVA (4) Hx of myocardial infarction: takes aspirin/ plavix which will continue to be held For hypertension if need to be his intravenous enalapril or hydralazine until o ral intake is securedwith history of stroke atorvostatin or rosuvistatin maybe preferable (5) Pituitary tumor: (6) BPH (benign prostatic hyperplasia): (7) Hx TIA/stroke w/o resid: takes asprin and plavix and a statin repeat CT scan does not show stroke will resume antiplatelet therapy when surgery feels is appropriate and patient taking po well Subjective Doing fair, conversational, to his name, birthday, however not place, Denies fever chills, denies other complaint, Mild posterior neck pain, Review of Systems Review of Systems: Unobtainable due to reduced consciousness Physical Exam Physical Exam: General Appearance: WD/WN, no apparent distress, Eyes: normal inspection, PERRL, EOMI, sclerae normal ENT: Nose tube feeding is in place, normal ENT inspection, hearing grossly normal, pharynx normal Neck: supple, in collar support Respiratory/Chest: chest non-tender, decreased breath sounds, Cardiovascular: regular rate, rhythm, no JVD, no murmur Abdomen: Tang catheter in place, normal bowel sounds, non tender, soft, no organomegaly, Extremities: normal range of motion, non-tender, normal inspection, no pedal edema, no calf tenderness, normal capillary refill, pelvis stable, 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
[2019-01-24] MEDS: PRAVASTATIN SOD 20 MG TAB PO SCH (21:39)
[2019-01-24] MEDS: QUETIAPINE FUMARATE 25 MG TABLET NG SCH (21:40)
[2019-01-25] MEDS: SODIUM CHLORIDE 0.9% 1000ML 1,000 ML IV SCH (02:56)
[2019-01-25 06:51] LABS: Albumin Level 2.9 gm/dl (3.4-5.0); Calcium 8.5 mg/dl (8.5-10.1); Creatinine Clr Calc Pharmacy 62.7 ml/min; Est GFR (African American) 88.4; Est GFR (Non-African American) 76.3; Magnesium 2.1 mg/dl (1.8-2.4); Potassium 4.3 mmol/L (3.5-5.1)
[2019-01-25 06:54] LABS: Albumin Globulin Ratio 0.9 (0.9-2); Bilirubin,Total 0.3 mg/dl (0.2-1); Globulin 3.2 gm/dl (2.5-4.0); Phosphorus 1.6 mg/dl (2.5-4.9); Total Protein 6.1 gm/dl (6.4-8.2)
[2019-01-25] MEDS: LISINOPRIL 10 MG TAB PO SCH (07:32)
[2019-01-25] MEDS: ASPIRIN 81 MG CHEW NG SCH ×2 (07:33→20:07)
[2019-01-25] MEDS: DOCUSATE SODIUM SYRUP 100 MG/10 ML UDC NG SCH ×2 (07:33→20:07)
[2019-01-25] MEDS: VITAMIN B COMPLEX TAB PO SCH (07:33)
[2019-01-25] MEDS: POTASSIUM CHLORIDE PWD 20 MEQ PACK NG SCH (07:33)
[2019-01-25] MEDS: MULTI VIT W/MINERALS LIQUID 15 ML UDP NG SCH (07:33)
[2019-01-25] MEDS: FAMOTIDINE 20 MG TAB PO SCH ×2 (07:33→20:07)
[2019-01-25] MEDS: CHOLECALCIFEROL (VITAMIN D) 400 UNITS TABLET NG SCH ×2 (07:33→20:07)
[2019-01-25] MEDS: CALCIUM CARBONATE 1,250 MG/5 ML UDC NG SCH ×2 (07:33→20:07)
[2019-01-25] MEDS: CHECK SCOPOLAMINE PATCH PLACEMENT SCH ×2 (07:34→16:01)
[2019-01-25] MEDS: DEXAMETHASONE SOD PHOSPHATE 6 MG in SYRINGE 0 ML IV SCH ×2 (08:40→16:02)
[2019-01-25] MEDS ORDERED: LISINOPRIL 5 MG TAB PO SCH (09:00)
[2019-01-25] MEDS ORDERED: SENNA 8.6 MG TAB PO SCH (12:00)
[2019-01-25] MEDS ORDERED: SENNA 17.6 MG/10 ML UDP PO SCH (13:15)
--- NOTE | 2019-01-25 14:01 | Fluoroscopy Report ---
FL video swallow CLINICAL HISTORY: 78 years-old Male with r/o aspiration before beginning p.o.. Chronic cough with co ncern for aspiration TECHNIQUE: Video fluoroscopic evaluation of swallowing was performed in the AP and lateral projection s by the speech pathology staff. The patient is fed nectar-thick and thin liquid barium, a barium coa zander wafer, and barium pudding. FLUOROSCOPY TIME: 2.0 minutes. COMPARISON STUDY: CT cervical spine 01/21/2019. FINDINGS: Aspiration with thin liquid barium. No additional penetration or aspiration identified. Dec reased oropharyngeal transit with solid consistencies. Swallowing function is otherwise unremarkable. Fusion hardware noted about the mid cervical spine. IMPRESSION: 1. Aspiration with thin liquid barium 2. Please see the speech pathologist report for detailed findings and recommendations. Electronically signed by: Anastacio Kaur M.D. 01/25/2019 2:00 PM
--- NOTE | 2019-01-25 14:58 | Orthopedic Progress Note ---
Date of Service January 25, 2019 Assessment & Plan (1) Cervical stenosis of spinal canal: At this time I would encourage ambulation as tolerated. Hopefully will be able to discontinue his Tang the next day or so and discharged home. Present on Admission?: Yes Subjective Patient is sitting at the bedside. His family is in room with him. He denies any cervicalgia. He denies any radicular complaints in the arm. He is tolerating swallowing a soft diet reasonably well. Physical Exam Physical Exam: On exam his neck is supple there is no drainage. He is reasonable grasp of bilaterally. He is much more alert and oriented today. Results & Data Vital Signs (Past 12 Hours) Vital Signs Temp Pulse Pulse Resp BP Pulse Ox 01/25/19 12:10 36.9 C 59 L 20 177/81 H 94 01/25/19 11:31 60 16 96 01/25/19 07:14 65 16 96 01/25/19 04:17 56 L 18 163/80 H 93 01/25/19 03:59 83 16 94
--- NOTE | 2019-01-25 16:26 | Hospitalist Progress Note ---
Date of Service January 25, 2019 Assessment & Plan (1) Accelerated essential hypertension: Blood pressure 177/81, has increase in his lisinopril from 10 TO 15, will continue follow-up (2) Hx of myocardial infarction: takes aspirin/ plavix which will continue to be held For hypertension if need to be his intravenous enalapril or hydralazine until oral intake is secured with history of stroke atorvostatin or rosuvistatin maybe preferable (3) Encephalopathy: Patient had acute encephalopathy 01/22/2019 unclear etiology. Seems resolved ABG unremarkable, chest x-ray NAD heart failure liver function were unremarkable CT scan of his head was performed has ruled out any type of intracranial issues CT angiogram of his neck without acute concern maybe sunding behavior cont Seroquel at bedtime are using as needed Haldol for behavior control (4) Aspiration into airway: speech therapy positive test, ordered a diet, removed NG tube, started feeding, (5) BPH (benign prostatic hyperplasia): Stable continue current medication, (6) Cervical stenosis of spinal canal: surgical team has started IV Decadron to see if this improves his swallowing function. Because of the vertebral artery narrowing a CT scan of his brain was undertaken due to his movement disorder and speech problems. This was unremarkable for any type of CVA (7) Pituitary tumor: (8) Hx TIA/stroke w/o resid: takes asprin and plavix and a statin repeat CT scan does not show stroke will resume antiplatelet therapy when surgery feels is appropriate and patient taking po well Subjective Generally doing good awake alert orientated conversational, report some uncomfortable of NG tube feeding, Denies fever and chill, Review of Systems Review of Systems: All systems reviewed & are unremarkable except as noted in HPI & below Physical Exam Physical Exam: General Appearance: WD/WN, no apparent distress, Eyes: normal inspection, PERRL, EOMI, sclerae normal ENT: Nose tube feeding is in place, normal ENT inspection, hearing grossly no rmal, pharynx normal Neck: supple, in collar support Respiratory/Chest: chest non-tender, decreased breath sounds, Cardiovascular: regular rate, rhythm, no JVD, no murmur Abdomen: Tang catheter in place, normal bowel sounds, non tender, soft, no organomegaly, Extremities: normal range of motion, non-tender, normal inspection, no pedal edema, no calf tenderness, normal capillary refill, pelvis stable, 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4 Est GFR (Non-Af Amer) 76.3 BUN/Creatinine Ratio 27.0 H Glucose 172 H POC Glucose 163 H 169 H Calcium 8.5 Phosphorus 1.6 L Magnesium 2.1 Total Bilirubin 0.3 AST 16 ALT 21 Alkaline Phosphatase 65 Total Protein 6.1 L Albumin 2.9 L Globulin 3.2 Albumin/Globulin Ratio 0.9
[2019-01-25] MEDS: QUETIAPINE FUMARATE 25 MG TABLET NG SCH (20:06)
[2019-01-25] MEDS: PRAVASTATIN SOD 20 MG TAB PO SCH (20:06)
[2019-01-25] MEDS: HALOPERIDOL LACTATE 5 MG/ML 1 ML VIAL IM PRN ×2 (21:02→22:03)
[2019-01-26] MEDS: CHECK SCOPOLAMINE PATCH PLACEMENT SCH ×2 (00:24→09:08)
[2019-01-26] MEDS: DEXAMETHASONE SOD PHOSPHATE 6 MG in SYRINGE 0 ML IV SCH ×3 (01:18→17:06)
[2019-01-26] MEDS ORDERED: Nursing to Pharmacy Communication ONE (07:38)
[2019-01-26] MEDS ORDERED: ACETAMINOPHEN 500 MG TAB PO PRN (07:40)
[2019-01-26] MEDS ORDERED: HydrALAZINE HCL 20 MG/ML VIAL IV PRN (08:13)
[2019-01-26] MEDS ORDERED: POLYETHYLENE (MIRALAX) 17 GM PACK PO PRN (08:27)
[2019-01-26] MEDS ORDERED: OXYCODONE HCL IR 5 MG TAB (IMMEDIATE RELEASE) PO PRN (08:28)
[2019-01-26] MEDS ORDERED: MAGNESIUM HYDROXIDE SUSP 30 ML UDC PO PRN (08:28)
[2019-01-26] MEDS ORDERED: CALCIUM CARBONATE 1250MG TAB PO SCH (09:00)
[2019-01-26] MEDS: SENNA 8.6 MG TAB PO SCH ×2 (09:09→11:53)
[2019-01-26] MEDS: DOCUSATE SODIUM 100 MG CAP PO SCH ×3 (09:09→20:11)
[2019-01-26] MEDS: CALCIUM 600MG + VIT D 400 IU TAB PO SCH ×3 (09:10→20:10)
[2019-01-26] MEDS: CEROVITE ADV FORMULA TAB PO SCH ×2 (09:10→11:53)
[2019-01-26] MEDS: POTASSIUM CHLORIDE 10 MEQ TABCR PO SCH ×2 (09:10→11:53)
[2019-01-26] MEDS: ASPIRIN 81 MG ECTAB PO SCH ×3 (09:10→20:10)
[2019-01-26] MEDS: FAMOTIDINE 20 MG TAB PO SCH ×3 (09:10→20:09)
[2019-01-26] MEDS: LISINOPRIL 20 MG TAB PO SCH ×2 (09:10→11:53)
--- NOTE | 2019-01-26 09:53 | Orthopedic Progress Note ---
Date of Service January 26, 2019 Assessment & Plan (1) Cervical stenosis of spinal canal: This time we will advance his diet as tolerated. Strongly consider removal of the Tang catheter if he can tolerate standing and ambulating to the restroom. It is probably reasonable to begin antiplatelet therapy. Present on Admission?: Yes Subjective Patient is sitting the chair at the bedside. He denies any neck pain or arm symptoms today. Still struggling with swallowing. But tolerating soft foods. Physical Exam Physical Exam: On exam the collar is in place. Is reasonable grasp bilaterally. Still limited range of motion of the right shoulder. Results & Data Vital Signs (Past 12 Hours) Vital Signs Temp Pulse Pulse Pulse Resp BP BP 01/26/19 07:31 36.4 C L 61 20 172/91 H 01/26/19 07:12 65 18 01/26/19 05:29 155/76 H 01/26/19 04:00 59 L 20 01/26/19 03:00 36.7 C 57 L 20 183/97 H 01/25/19 23:59 36.4 C L 54 L 18 158/95 H 01/25/19 23:44 52 L 16 01/25/19 22:20 62 Pulse Ox 01/26/19 07:31 93 01/26/19 07:12 96 01/26/19 05:29 01/26/19 04:00 96 01/26/19 03:00 96 01/25/19 23:59 95 01/25/19 23:44 95 01/25/19 22:20
[2019-01-26] MEDS: VITAMIN B COMPLEX TAB PO SCH (11:53)
--- NOTE | 2019-01-26 16:31 | Hospitalist Progress Note ---
Date of Service January 26, 2019 Assessment & Plan (1) Accelerated essential hypertension: Blood pressure still up to 177/91 even though has increased lisinopril from 10 TO 15, will increase up to 20 mg p.o. daily, Patient did not complain about pain, (2) Hx of myocardial infarction: takes aspirin/ plavix , I saw asa has been restarted by 1st team, Plavix still on hold, will discuss orthopedic to restart ladi (3) Encephalopathy: Patient had acute encephalopathy 01/22/2019 unclear etiology. totally resolved ABG unremarkable, chest x-ray NAD heart failure liver function were unremarkable CT scan of his head was performed has ruled out any type of intracranial issues CT angiogram of his neck without acute concern (4) Aspiration into airway: speech therapy positive test, ordered a diet, removed NG tube, started feeding, (5) BPH (benign prostatic hyperplasia): Stable continue current medication, Ordered discontinue Tang catheter (6) Cervical stenosis of spinal canal: surgical team has started IV Decadron to see if this improves his swallowing function. Because of the vertebral artery narrowing a CT scan of his brain was undertaken due to his movement disorder and speech problems. This was unremarkable for any type of CVA (7) Pituitary tumor: (8) Hx TIA/stroke w/o resid: takes asprin and plavix and a statin repeat CT scan does not show stroke will resume antiplatelet therapy when surgery feels is appropriate and patient taking po well Subjective Was having significant dry cough after taking pill this morning, still have some difficulty in taking pill, however he was able to eating diet per recommendation of speech Blood pressure has been high in recent 1 or 2 days even increased lisinopril from 10-15, Review of Systems Review of Systems: All systems reviewed & are unremarkable except as noted in HPI & below Neck pain is well controlled, Physical Exam Physical Exam: General Appearance: WD/WN, no apparent distress, Eyes: normal inspection, PERRL, EOMI, sclerae normal ENT: Nose tube feeding is in place, normal ENT inspection, hearing grossly normal, pharynx normal Neck: supple, in collar support Respiratory/Chest: chest non-tender, decreased breath sounds, Cardiovascular: regular rate, rhythm, no JVD, no murmur Abdomen:normal bowel sounds, non tender, soft, no organomegaly, Extremities: normal range of motion, non-tender, normal inspection, no pedal edema, no calf tenderness, normal capillary refill, pelvis stable, 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
[2019-01-26] MEDS: PRAVASTATIN SOD 20 MG TAB PO SCH (20:11)
[2019-01-26] MEDS ORDERED: QUETIAPINE FUMARATE 25 MG TABLET PO SCH (21:00)
[2019-01-27] MEDS: DEXAMETHASONE SOD PHOSPHATE 6 MG in SYRINGE 0 ML IV SCH ×2 (00:50→07:57)
[2019-01-27] MEDS: VITAMIN B COMPLEX TAB PO SCH (07:55)
[2019-01-27] MEDS: LISINOPRIL 20 MG TAB PO SCH (07:55)
[2019-01-27] MEDS: FAMOTIDINE 20 MG TAB PO SCH (07:56)
[2019-01-27] MEDS: DOCUSATE SODIUM 100 MG CAP PO SCH (07:56)
[2019-01-27] MEDS: POTASSIUM CHLORIDE 10 MEQ TABCR PO SCH (07:56)
[2019-01-27] MEDS: CEROVITE ADV FORMULA TAB PO SCH (07:56)
[2019-01-27] MEDS: ASPIRIN 81 MG ECTAB PO SCH (07:56)
[2019-01-27] MEDS: SENNA 8.6 MG TAB PO SCH (07:56)
[2019-01-27] MEDS: CALCIUM 600MG + VIT D 400 IU TAB PO SCH (07:57)
[2019-01-27 08:34] LABS: Hematocrit (blood only) 45.2 % (42-52); Immature Granulocytes # (auto) 0.12 K/uL (0.00-0.02); Immature Granulocytes % (auto) 0.9 %; Lymphocytes # (auto) 0.88 K/uL (1.2-3.4); Lymphocytes % (auto) 6.4 %; Mean Corpuscular Volume 96.2 fL (80-100); Mean Platelet Volume 9.9 fL (7.4-10.4); Monocytes # (auto) 0.85 K/uL (0.11-0.59); Monocytes % (auto) 6.2 %; Neutrophils # (auto) 11.92 K/uL (1.4-6.5); Neutrophils % (auto) 86.5 %; Platelet Count 276 K/uL (130-400); RDW Coefficient of Variation 12.7 % (11.5-14.5); RDW Standard Deviation 44.3 fL (36.4-46.3); White Blood Count 13.77 K/uL (4.8-10.8)
[2019-01-27 08:55] LABS: Mean Corpuscular Hgb Conc 35.4 g/dL (32-36)
[2019-01-27 09:16] LABS: BUN Creatinine Ratio 20.1 (10-20); Creatinine Clr Calc Pharmacy 54.3 ml/min; Est GFR (African American) 73.9; Est GFR (Non-African American) 63.8; Magnesium 2.4 mg/dl (1.8-2.4); Potassium 4.9 mmol/L (3.5-5.1)
[2019-01-27 11:34] VITALS: BP 147/82; TEMP 98.4; O2SAT 96
[2019-01-27 13:35] VITALS: PULSE 70
--- NOTE | 2019-01-27 15:17 | Hospitalist Progress Note ---
Date of Service January 27, 2019 Assessment & Plan (1) Accelerated essential hypertension: Blood pressure has been up to 174/90 today , even though has increased lisinopril from 10 to 20 mg p.o. daily, Patient did not complain about pain, has discussed with patient and about his blood pressure issues recommend him to have blood pressure check in 2 time a day and bring log to PCP in the follow-up visit (2) Hx of myocardial infarction: takes aspirin/ plavix , primary team has restarted this 2 medicine after the procedure (3) Encephalopathy: Patient had acute encephalopathy 01/22/2019 unclear etiology. totally resolved ABG unremarkable, chest x-ray NAD heart failure liver function were unremarkable CT scan of his head was performed has ruled out any type of intracranial issues CT angiogram of his neck without acute concern Patient has been continue stable 2 days, (4) Aspiration into airway: speech therapy clear him for diet , patient continued to tolerate, no choking, (5) BPH (benign prostatic hyperplasia): Stable continue current medication, Ordered discontinue Tang catheter (6) Cervical stenosis of spinal canal: surgical team has started IV Decadron to see if this improves his swallowing function. Recommend taper off steroids, This was unremarkable for any type of CVA (7) Pituitary tumor: (8) Hx TIA/stroke w/o resid: takes asprin and plavix and a statin repeat CT scan does not show stroke Upon discharge surgeon has resume this 2 medication Subjective Out of bed to chair, NG tube removed, tolerating diet, pleasant conversational, no complaint, Review of Systems Review of Systems: All systems reviewed & are unremarkable except as noted in HPI & below Physical Exam Physical Exam: General Appearance: WD/WN, no apparent distress, Eyes: normal inspection, PERRL, EOMI, sclerae normal ENT: Nose tube feeding is in place, normal ENT inspection, hearing grossly normal, pharynx normal Neck: supple, in collar support Respiratory/Chest: chest non-tender, decreased breath sounds, Cardiovascular: regular rate, rhythm, no JVD, no murmur Abdomen: Tang catheter in place, normal bowel sounds, non tender, soft, no organomegaly, Extremities: normal range of motion, non-tender, normal inspection, no pedal edema, no calf tenderness, normal capillary refill, pelvis stable, 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: 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, no motor/sensory deficits, alert, normal mood/affect, oriented x3 Skin: normal color, warm/dry, no rash Lymphatic: no adenopathy Results & Data Vital Signs (Past 12 Hours) Vital Signs Temp Pulse Pulse Resp BP BP Pulse Ox 01/27/19 13:32 36.9 C 77 70 18 174/90 H 147/82 H 96 01/27/19 11:33 36.9 C 77 18 147/82 H 96 01/27/19 11:10 78 18 97 01/27/19 07:25 36.5 C 64 18 156/84 H 95 01/27/19 07:11 82 18 95 01/27/19 03:54 73 18 96 Laboratory Results - last 24 hr 01/26/19 01/27/19 01/27/19 23:49 08:22 08:22 WBC 13.77 H RBC 4.70 Hgb 16.0 Hct 45.2 MCV 96.2 MCH 34.0 MCHC 35.4 RDW Std Deviation 44.3 RDW Coeff of Daniel 12.7 Plt Count 276 MPV 9.9 Immature Gran % (Auto) 0.9 Neut % (Auto) 86.5 Lymph % (Auto) 6.4 Logan % (Auto) 6.2 Eos % (Auto) 0.0 Baso % (Auto) 0.0 Immature Gran # (Auto) 0.12 H Neut # (Auto) 11.92 H Lymph # (Auto) 0.88 L Logan # (Auto) 0.85 H Eos # (Auto) 0.00 Baso # (Auto) 0.00 Sodium 139 Potassium 4.9 Chloride 104 Carbon Dioxide 29 Anion Gap 6.0 BUN 22 H Creatinine 1.09 Est Cr Clr Drug Dosing 54.3 Est GFR ( Amer) 73.9 Est GFR (Non-Af Amer) 63.8 BUN/Creatinine Ratio 20.1 H Glucose 159 H POC Glucose 145 H Calcium 10.0 Magnesium 2.4 01/27/19 11:48 WBC RBC Hgb Hct MCV MCH MCHC RDW Std Deviation RDW Coeff of Daniel Plt Count MPV Immature Gran % (Auto) Neut % (Auto) Lymph % (Auto) Logan % (Auto) Eos % (Auto) Baso % (Auto) Immature Gran # (Auto) Neut # (Auto) Lymph # (Auto) Logan # (Auto) Eos # (Auto) Baso # (Auto) Sodium Potassium Chloride Carbon Dioxide Anion Gap BUN Creatinine Est Cr Clr Drug Dosing Est GFR ( Amer) Est GFR (Non-Af Amer) BUN/Creatinine Ratio Glucose POC Glucose 141 H Calcium Magnesium
--- NOTE | 2019-01-27 17:23 | Discharge Summary ---
Date of Service January 27, 2019 Admission HPI Per Admitting Provider This is an 78-year-old male that presents with chronic persistent neck and arm pain. After failing extensive course of nonoperative care he is here for surgical intervention. Principal Diagnosis Cervical spinal stenosis with myeloradiculopathy Discharge Data Allergies Allergy/AdvReac Type Severity Reaction Status Date / Time propoxyphene Allergy Severe POSS. Verified 01/18/19 05:58 CARDIAC ARREST doxycycline Allergy Unknown Unknown Verified 01/18/19 06:10 morphine Allergy Unknown "NEAR Verified 01/18/19 05:58 " - TOLERATES FENTANYL Penicillins Allergy Unknown Unknown Verified 01/18/19 06:10 Consultations 01/18/19 11:25 Consult Vascular Surgery Stat 01/18/19 16:32 Consult Fitness Specialist Routine 01/21/19 07:52 Consult Hospitalist Routine 01/22/19 17:08 Consult Nutrition Routine Procedures Performed Operation Date: 01/18/19 07:45 Actual Procedures p Anterior Cervical Discectomy Fusion C3-C5 - Tarik Biggs DO Ordered Studies 01/18/19 07:45 FL cervical 2-3V Routine FL fluoroscopy <1hr Routine 01/18/19 09:09 CT angio neck wo/w con Stat 01/20/19 09:00 CT angio neck wo/w con Routine 01/21/19 08:16 CT cervical spine wo con Urgent 01/21/19 14:52 CT head/brain wo con Urgent 01/25/19 12:45 FL video swallow Routine Hospital Course (1) Cervical stenosis of spinal canal: Patient underwent anterior cervical discectomy and fusion C3-4 C4-5. During the procedure he suffered a right vertebral artery injury. He did tolerate the procedure relatively well despite this incident and was taken to the ICU postoperatively. He was in ICU for 2 days monitoring his progress. Vascular surgery assisted us in his evaluation and treatment plan. Follow-up imaging demonstrated excellent collateral flow despite occlusion of the right vertebral artery. He was transferred to orthopedic floor but approximately postop day 4 began having significant swallowing issues and had to be placed n.p.o. and eventually progressing to a soft diet and a full diet of the course of several days. He was deemed stable by medicine and vascular and subsequent discharge home. Discharge orders and instructions can be found in the chart for further review. Total Time Total Time Spent Total Time Spent (In Minutes): Not applicable Discharge Plan Discharge Items Patient Disposition: Home - Self-Care Reason For Visit: CERVICAL SPINAL STENOSIS Discharge Diagnosis: cervical stenosis Discharge Goals: Improve function Activity: Per 'Additional Instructions' section Non-emergency contact: Primary Care Provider Call non-emergency contact if: you have any medication questions Follow-up/Referrals: Calos Radford MD [Primary Care Provider] - Diet: Regular Addtl Provider Instructions: ACTIVITY RECOMMENDATIONS: SELF CARE INSTRUCTIONS AFTER CERVICAL FUSIONS 1. No smoking. Smoking drastically decreases the chance of a solid fusion. 2. No bending, lifting more than 5 pounds, or twisting (roll like a log when turning in bed). 3. You may shower 3 days after surgery. Thoroughly dry wound. Do not soak in the tub. 4. Cervical collar: Must be worn at all times including sleeping. You may remove the brace only to bath, eat and if you are sitting in a recliner. 5. Please walk as much as you can for exercise. Gradually increase the distance that you walk as your endurance increases. SPECIAL CARE INSTRUCTIONS: VERY IMPORTANT TO READ AND REVIEW A. Do not take any anti-inflammatory medications (i.e. Indocin, Advil, Aspirin, Naprosyn, Aleve, Motrin, etc.) as these may inhibit the chance of a solid fusion. Tylenol is okay to take. B. Your surgical incision has been closed with a cosmetic suture under the skin that will dissolve in about 6 weeks. In 14 days, you can use a pair of clean scissors and cut the suture that is left outside of the skin at the ends of your incision. C. Complications are uncommon, but please contact us if you have any signs or symptoms of: 1. wound infection (fever higher than 102.5 degrees F, redness, separation of wound, drainage, or increasing pain from the incision) 2. blood clots in legs (pain, swelling, redness and warmth in legs) 3. urinary tract infection (fever higher than 102.5 degrees, burning upon urination or increased frequency of urination) 4. nerve problems (inability to walk on your toes or heels, numbness, loss of bowel or bladder control) 5. any other symptoms that concern you. D. Please call the office at if you have any concerns or questions about your operation or recovery. MANAGING PAIN AFTER SPINAL SURGERY 1. Narcotic medication is intended for short-term use and will be provided for surgical pain. Surgical pain usually lasts for a period of 4-6 weeks. Narcotic medication includes Percocet, Vicodin, Darvocet, Tylenol #3 or Lortab. 2. Longer-term pain is more appropriately treated with non-narcotic medication such as Tylenol ES. 3. Muscle spasm is not appropriately treated with narcotics. Muscle relaxers such as Soma, Flexeril or Skelaxin can be used along with Tylenol ES. 4. Remember that we all live with some "aches and pains". This is not unusual or uncommon after an injury or as we get older. 5. We will provide appropriate medication within the normal guidelines of their prescribed use. We will also be very cautious and aware of potential abuse and extended duration of patients' medication needs. 6. Please allow 2-3 days to process refills. Prescriptions will not be mailed but must be picked up at the office. FOLLOW UP VISIT: Keep your scheduled follow-up appointment. Any questions, please call the office at . Prescriptions: Continued multivitamin Tablet 1 tab PO QAM RF: 0 clopidogrel 75 mg Tablet 75 mg PO QPM RF: 0 aspirin [Aspirin Low Dose] 81 mg Tablet,Delayed Release (Dr/Ec) 81 mg PO BID RF: 0 famotidine 20 mg Tablet 20 mg PO BID RF: 0 potassium citrate 10 mEq (1,080 mg) Tablet Extended Release 10 meq PO BID RF: 0 lisinopril 10 mg Tablet 10 mg PO QAM RF: 0 nitroglycerin [Nitrostat] 0.4 mg Tablet, Sublingual 1 tab sublingual DIRECTED RF: 0 vitamin B complex Tablet 2 tab PO QAM RF: 0 pravastatin 20 mg Tablet 20 mg PO QPM RF: 0 coenzyme Q10 [CoQ-10] 100 mg Capsule 200 mg PO QPM RF: 0 calcium carbonate-vitamin D3 [Calcium 500 With D] 500 mg(1,250mg) -400 unit Tablet 1 tab PO BID RF: 0 Livalo 2 mg Tablet 2 mg PO QPM RF: 0 Prevagen 1 tab PO QAM RF: 0 Systane (PF) 0.4-0.3 % Dropperette 1 drp OPHTHALMIC (EYE) BID PRN (Reason: Dry Eyes) RF: 0 acetaminophen [Acetaminophen Extra Strength] 500 mg Tablet 1,000 mg PO Q6H PRN (Reason: Pain) RF: 0 Stand-Alone Forms: [facility] Discharge Orders: Discharge Order (Routine); Ordered 01/27/19 Ordered By: Tarik Biggs Admission Data Admit Date/Time: 01/18/19 11:52 Attending Provider: Tarik Biggs Admit Provider: Tarik Biggs Primary Care Provider: Calos Radford Other Providers: Douglas Banda ; Lion Quintana ; Emmett Ahmadi Service: Surgical Services Other Interventions: Discharge Summary Assessment (RN) Last Done: 01/27/19 13:32 DC Date/Time DO NOT enter until pt leaves facility: 01/27/19 14:28
== END 2019-01-27 14:28 | disposition home or self-care (01) | DRG 472 ==
LOC: ASU 05:32 → 1E 11:52 → 3E 01-20 14:27 → 2N 01-22 01:29